=== PATIENT | female | born 1980 | race Caucasian/White ===

== ENCOUNTER 2025-05-21 09:26 | Outpatient (REF) | payer OTHER, SELFPAY ==
--- NOTE | 2025-05-21 09:36 | ECG_ITS ---
Test Reason : tachycardia Blood Pressure : */* mmHG Vent. Rate : 89 BPM Atrial Rate : 89 BPM P-R Int : 146 ms QRS Dur : 90 ms QT Int : 386 ms P-R-T Axes : 62 56 48 degrees QTcB Int : 469 ms Normal sinus rhythm Normal ECG No previous ECGs available Referred By: Milagro Briceno Electronically Signed By: TARIK JUAN MD
[2025-05-21 10:51] LABS: Alanine Aminotransferase 14 U/L (0-31); Albumin Level 4.1 g/dL (3.5-5.0); Alkaline Phosphatase 95 U/L (39-117); Anion Gap 11 (12-20); Aspartate Amino Transferase 23 U/L (5-31); Blood Urea Nitrogen 7 mg/dL (9-16); Calcium 8.6 mg/dL (8.4-10.2); Carbon Dioxide 26 mmol/L (22-29); Chloride 106 mmol/L (96-108); Cholesterol 159 mg/dL (<200); Estimated Glomerular Filt Rate > 60; HDL Cholesterol 44 mg/dL (>40); Potassium 3.8 mmol/L (3.3-5.1); Sodium 139 mmol/L (135-145); Total Protein 6.7 g/dL (6.5-8.0); Triglycerides 238 mg/dL (<150)
[2025-05-21 11:10] LABS: Free T4 (Free Thyroxine) 0.63 ng/dL (0.71-1.85); Thyroid Stimulating Hormone 1.53 uIU/mL (0.32-4.0)
== END 2025-05-21 09:27 | disposition home or self-care (01) ==
LOC: HO.LAB 09:26
PROVIDERS: PCP Internal Medicine; Visit Provider Registered Nurse Psychiatric/Mental Health
DX: F33.9 Major depressive disorder, recurrent, unspecified (principal); R00.0 Tachycardia, unspecified
CPT/HCPCS: 36415; 80053; 80061; 82248; 82306; 83036; 84439; 84443; 84481; 93005

== ENCOUNTER → 2025-05-21 09:36 | Outpatient (BNV) | payer OTHER, SELFPAY | PROVIDERS: PCP Internal Medicine; Visit Provider Internal Medicine Cardiovascular Disease | DX: R00.0 Tachycardia, unspecified (principal) | CPT/HCPCS: 93010 ==

== ENCOUNTER 2025-06-09 18:06 | Emergency (ER) | payer OTHER, SELFPAY ==
--- NOTE | ~2025-06-09 | XR_ITS ---
CLINICAL HISTORY: COughing. 1 view chest x-ray Comparison: None provided Findings: Lungs are clear without acute infiltrates. No pneumothorax. Heart size normal. No acute bony abnormalities. Impression: No acute processes This document has been electronically signed by: Raffi Wagner MD on 06/09/2025 19:20:58
[2025-06-09 18:28] VITALS: BP 128/63; PULSE 103; RESP 22; TEMP 36.8; O2SAT 94; BMI 50.7
--- NOTE | 2025-06-09 18:49 | ED.GENADULT ---
HPI - General Adult General Chief complaint: Upper Respiratory Symptoms Stated complaint: Cough/Wheezing Time Seen by Provider: 06/09/25 20:15 Source: patient Limitations: no limitations History of Present Illness ED Provider: Caridad Hatch PA-C HPI narrative: 45-year-old female presents with cough and cold symptoms x1 day. The cough is dry and repetitive, with the associated wheezing. Patient has multiple sick contacts; she is a new resident and a snf house. Denies known fever. Related Data Home Medications ?Medication ?Instructions ?Recorded ?Confirmed aripiprazole 2 mg tablet (Abilify) 2 mg PO BEDTIME depressive disorder 06/09/25 06/09/25 clonazepam 1 mg tablet 1 mg PO DAILY PRN Anxiety 06/09/25 06/09/25 clonidine HCl 0.1 mg tablet 0.1 mg PO BID 06/09/25 06/09/25 doxazosin 1 mg tablet 1 mg PO BEDTIME nightmares 06/09/25 06/09/25 gabapentin 600 mg tablet 600 mg PO Q8H 06/09/25 06/09/25 melatonin 3 mg tablet 3 mg PO BEDTIME insomnia 06/09/25 06/09/25 metformin 500 mg tablet,extended 500 mg PO DAILY diabetes mellitus 06/09/25 06/09/25 release 24 hr trazodone 100 mg tablet 100 mg PO BEDTIME insomnia 06/09/25 06/09/25 venlafaxine 150 mg 150 mg PO QAM 06/09/25 06/09/25 capsule,extended release 24 hr venlafaxine 75 mg capsule,extended 75 mg PO QAM 06/09/25 06/09/25 release 24 hr Previous Rx's ?Medication ?Instructions ?Recorded albuterol sulfate 90 mcg/actuation 2 puff inhalation Q4-6H PRN 06/09/25 aerosol inhaler (Ventolin HFA) shortness of breath or wheezing #6.7 grams codeine 10 mg-guaifenesin 100 mg/5 10 ml PO Q4-6H PRN cough #118 mL 06/09/25 mL oral liquid (Guaifenesin AC) prednisone 20 mg tablet 40 mg (2 x 20 mg) PO DAILY #8 tabs 06/09/25 Allergies Allergy/AdvReac Type Severity Reaction Status Date / Time No Known Allergies Allergy Verified 06/09/25 18:33 Review of Systems Review of Systems: Yes all other systems are reviewed and are negative Constitutional: Constitutional: Denies fatigue and Denies fever(s) Cardiovascular: Cardiovascular: Denies chest pain and Denies dyspnea Respiratory: Respiratory: Denies chest congestion, Reports cough, Denies dyspnea and Reports wheezing Endocrine: Endocrine: Denies fatigue Allergic/Immunologic: Allergic/Immunologic: Reports wheezing PMFSH Past Medical History Attestation statement: The following information was validated with the patient. Social History Social History Alcohol intake: former Smoked in Last 30 Days: No Use of substances other than those prescribed or required for medical reasons: No Advance Directives: No Advance Directives Information Provided: No Do you have a plan to hurt others: No Plan Patient : No Physical Exam ED Vital Signs: Vital Signs - 24 hr 06/09/25 18:28 06/09/25 20:02 06/09/25 21:22 Temperature 98.3 F 98.5 F Pulse Rate 103 H 94 Respiratory Rate 22 H 20 Blood Pressure 128/63 125/64 Pulse Oximetry 94 94 94 Oxygen Delivery Method Room Air Room Air Room Air 06/09/25 22:01 Temperature 98.5 F Pulse Rate 100 Respiratory Rate 20 Blood Pressure 126/82 Pulse Oximetry 95 Oxygen Delivery Method Room Air BMI result Body Mass Index 50.7 Const Other: Alert well-appearing Orientation/consciousness: patient oriented x3 Resp Other: Active bronchospasm type cough, occasional expiratory wheeze posterior sexton, no tachypnea Cardio Other: Normal peripheral perfusion Skin Other: Warm dry no rash Neuro General: patient oriented x3, gait normal, no focal motor deficits and CN's II-XI intact bilaterally Psych Other: Cooperative Course Course Course Narrative: RME: 45 yold female esmoker presents for coughing, wheezing, yellow phelghm, and headache. swabs and xray orderd Medications Administered Discontinued Medications Generic Name Dose Route Start Last Admin Trade Name Freq PRN Reason Stop Dose Admin Albuterol Sulfate 7.5 mg 06/09/25 21:00 06/09/25 21:07 Albuterol Sulfate (0.083%) 2.5 Mg/3 Ml Vial.Neb INHALE 06/09/25 21:01 7.5 mg ONCE ONE Administration Guaifenesin/Codeine Phosphate 10 ml 06/09/25 21:01 06/09/25 21:13 Guaifen/Codeine Sf 200/20/10ml 10 Ml Liquid PO 06/09/25 21:02 10 ml ONCE ONE Administration Prednisone 40 mg 06/09/25 21:00 06/09/25 21:07 Prednisone 20 Mg Tablet PO 06/09/25 21:01 40 mg ONCE ONE Administration Medical Decision Making Medical Decision Making [facility] Narrative: 45-year-old female presents with cough and cold symptoms x1 day. The cough is dry and repetitive, with the associated wheezing. Patient has multiple sick contacts; she is a new resident and a snf house. Denies known fever. No underlying chronic issues History: Per patient I have considered the following differential diagnoses: Asthma exacerbation, bronchospasm, bronchitis, pneumonia, viral syndrome Plan: Chest x-ray and viral panel ordered from triage everything is negative. The patient has reactive airway, she does not have a formal diagnosis of asthma, however she has been treated for bronchospasm in the past with other URI symptoms. Sending with the inhaler, prednisone and cough suppressant. I have independently reviewed the following tests: Labs: Viral panel negative Chest x-ray:1 view chest x-ray Comparison: None provided Findings: Lungs are clear without acute infiltrates. No pneumothorax. Heart size normal. No acute bony abnormalities. Impression: No acute processes This document has been electronically signed by: Raffi Wagner MD on 06/09/2025 19:20:58 Differential Diagnosis Differential Diagnoses: The differential diagnosis associated with the presentation includes See medical decision-making Admission/Observation Consideration of admission/observation: Escalation of care including admission/observation considered Not applicable Lab Data [facility] Lab Attestation statement: I reviewed the patient's lab results. Labs: Lab Results 06/09/25 Range/Units 19:19 COVID-19 (SOFY) Negative (Negative) COVID-19 Clin Com See Note Influenza Type A (PAOLA) Negative (Negative) Influenza Type B (PAOLA) Negative (Negative) Influenza A & B Note See Note S. pyogenes GrpA PAOLA Negative (Negative) Radiology Impression Discussion of test interpretation with radiology: I have reviewed the radiologist's reading. Discharge Plan Discharge Clinical Impression: Acute bronchospasm, Acute viral syndrome Patient Disposition: Home, Self-Care Instructions: Viral Syndrome (ED), Bronchospasm (ED) Additional Instructions: You are being treated for bronchospasm. See home care instructions. You likely have a virus causing your symptoms. You were screened for COVID, influenza and strep throat, everything was negative. The chest x-ray is clear you do not have pneumonia. There are numerous respiratory viruses circulating within the community. Use your albuterol as needed for wheezing and cough. Take the steroid as directed. Use the cough medicine as needed, to note it will cause drowsiness. Do not drive or operate machinery while taking the medication. Follow up with your primary care as needed. Prescriptions: New albuterol sulfate [Ventolin HFA] 90 mcg/actuation HFA aerosol inhaler 2 puff inhalation Q4-6H PRN (Reason: shortness of breath or wheezing) Qty: 6.7 0RF prednisone 20 mg tablet 40 mg PO DAILY Qty: 8 0RF codeine-guaifenesin [Guaifenesin AC] 10-100 mg/5 mL liquid 10 ml PO Q4-6H PRN (Reason: cough) Qty: 118 0RF No Action clonidine HCl 0.1 mg tablet 0.1 mg PO BID venlafaxine 75 mg capsule,extended release 24hr 75 mg PO QAM gabapentin 600 mg tablet 600 mg PO Q8H doxazosin 1 mg tablet 1 mg PO BEDTIME clonazepam 1 mg tablet 1 mg PO DAILY PRN (Reason: Anxiety) venlafaxine 150 mg capsule,extended release 24hr 150 mg PO QAM melatonin 3 mg tablet 3 mg PO BEDTIME trazodone 100 mg tablet 100 mg PO BEDTIME metformin 500 mg tablet extended release 24 hr 500 mg PO DAILY aripiprazole [Abilify] 2 mg tablet 2 mg PO BEDTIME Interventions: ED Discharge Assessment Last Done: 06/09/25 22:01 Discharge Date/Time: 06/09/25 22:01 Print Language: Hungarian
[2025-06-09 19:38] LABS: COVID-19 Test Negative (Negative); IDNOW Serial# 08D9AD1C; IDNOW Serial# 55D5AD1C; Strep A Nucleic Acid Negative (Negative)
[2025-06-09 19:41] LABS: IDNOW Serial# 58CA691E; Influenza B2 Negative (Negative)
[2025-06-09 20:02] VITALS: BP 125/64; PULSE 94; RESP 20; TEMP 36.9; O2SAT 94
--- OUTSIDE RECORDS SUMMARY | 2025-06-09 20:28 | XMS_ITS | Encounter Summary ---
Author Organization [employer] Address [address] [place] [address] Care Team Providers Care Human Relations Manager Name Role Phone Lea Rangel NP, Erica Primary Care Provider [phone] Encounter Details Date Type Department Care Team (Late st Contact Info) Description 04/02/2025 Lab Requisition [facility] - Main Lab [address] [facility] [address] [facility] [place] [address] Marta Marquez, [address] [address] Social History Tobacco Use Types Packs/Day Years Used Date Smoking Tobacco: Never Assessed Comments Unknown Sex and Gender Information Value Date Recorded Sex Assigned at Not on file Legal Sex Female 9:52 AM EDT Gender Identity Not on file Sexual Orientation Not on file documented as of this encounter Plan of Treatment Not on file documented as of this encounter Visit Diagnoses Not on filedocumented in this encounter Care Teams Human Relations Manager Relationship Specialty Start Date End Date Shannon Tate NP [address] [place] [phone] PCP - General Psychiatry 04/01/25 documented as of this encounter
--- OUTSIDE RECORDS SUMMARY | 2025-06-09 20:28 | XMS_ITS | Encounter Summary ---
Author Organization [employer] Address [address] [place] [address] Care Team Providers Care Drum Stenciler Name Role Phone Lea Rangel NP, Erica Primary Care Provider Encounter Details Date Type Department Care Team (Late st Contact Info) Description 04/01/2025 Lab Requisition [facility] - Main Lab [address] [facility] [place] [address] Shannon Tate NP [address] [place] [address] Other software systems architect (current) drug therapy Social History Tobacco Use Types Packs/Day Years Used Date Smoking Tobacco: Never Assessed Comments Unknown Sex and Gender Information Value Date Recorded Sex Assigned at Not on file Legal Sex Female 9:52 AM EDT Gender Identity Not on file Sexual Orientation Not on file documented as of this encounter Plan of Treatment Not on file documented as of this encounter Procedures Procedure Name Priority Date/Time Associated Diagnosis Comments LIPID PANEL WITH REFLEX TO DIRECT LDL Routine 04/01/2025 7:00 AM EDT Other software systems architect (current) drug therapy HEMOGLOBIN A1C Routine 04/01/2025 7:00 AM EDT Other software systems architect (current) drug therapy GLUCOSE, RANDOM Routine 04/01/2025 7:00 AM EDT Other software systems architect (current) drug therapy documented in this encounter Results * Hemoglobin A1c (04/01/2025 7:00 AM EDT) Hemoglobin A1C 6.4 <6.5 % LAB CHEMISTRY METHOD 04/01/2025 11:17 AM EDT [facility] Mean Bld Glu Estim. 137 mg/dL LAB CHEMISTRY METHOD 04/01/2025 11:17 AM EDT [facility] Blood Venous blood specimen / Unknown Venipuncture / Unknown 04/01/2025 7:00 AM EDT 04/01/2025 10:03 AM EDT us Shannon Rangel NP LAB BLOOD ORDERABLES Final Re sult [facility] LAB [address] [place] [address], [place] [phone] * Lipid panel with reflex to direct LDL (04/01/2025 7:00 AM EDT) Cholesterol 181 0 - 200 mg/dL LAB CHEMISTRY METHOD 04/01/2025 10:56 AM [facility] Triglycerides 141 0 - 150 mg/dL LAB CHEMISTRY METHOD 04/01/2025 10:56 AM [facility] HDL 53 >=40 mg/dL LAB CHEMISTRY METHOD 04/01/2025 10:56 AM [facility] LDL Calculated 100 0 - 100 mg/dL LAB CHEMISTRY METHOD 04/01/2025 10:56 AM [facility] LAB Comment:Estimated LDL Calcul ated using equation: Total cholesterol - HDL cholesterol - (Triglycerides/5) VLDL Cholesterol Aftab 28.2 mg/dL LAB CHEMISTRY METHOD 04/01/2025 10:56 AM [facility] LAB Non HDL Chol. (LDL+VLDL) 128 <145 mg/dL LAB CHEMISTRY METHOD 04/01/2025 10:56 AM [facility] LAB Chol/HDL Ratio 3.4 0.0 - 4.4 LAB CHEMISTRY METHOD 04/01/2025 10:56 AM [facility] Blood Venous blood specimen / Unknown Venipuncture / Unknown 04/01/2025 7:00 AM EDT 04/01/2025 10:03 AM EDT Shannon Rangel NP LAB BLOOD ORDERABLES Final Re sult Performing Organization Address [facility] Co de Phone Number [facility] [address] [place] [address], [place] [phone] * (ABNORMAL) Glucose, random (04/01/2025 7:00 AM EDT) Glucose 106(H) 70 - 100 mg/dL LAB CHEMISTRY METHOD 04/01/2025 10:56 AM EDT [facility] LAB Blood Venous blood specimen / Unknown Venipuncture / Unknown 04/01/2025 7:00 AM EDT 04/01/2025 10:03 AM EDT Shannon Rangel NP LAB BLOOD ORDERABLES Final Re sult Performing Organization Address [facility] Co de Phone Number [facility] [address] [place] [address], [place] [phone] documented in this encounter Visit Diagnoses Diagnosis Other software systems architect (current) drug therapy documented in this encounter Care Teams Drum Stenciler Relationship Specialty Start Date End Date Shannon Tate NP [address] [place] [phone] PCP - General Psychiatry 04/01/25 documented as of this encounter
--- OUTSIDE RECORDS SUMMARY | 2025-06-09 20:28 | XMS_ITS | Encounter Summary ---
Author Organization [employer] Address [address] [place] [address] Care Team Providers Care Tombstone Setter Name Role Phone Lea Rangel NP, Erica Primary Care Provider [phone] Encounter Details Date Type Department Care Team (Late st Contact Info) Description 04/02/2025 Lab Requisition [facility] - Main Lab [address] [facility] [place] [address] Marta Marquez, [address] [phone] Other fdc (current) drug therapy Social History Tobacco Use [...] Procedure Name Priority Date/Time Associated Diagnosis Comments HIV 1, 2 ANTIBODY, P24 ANTIGEN WITH REFLEX TO DIFFERENTIATION Routine 04/02/2025 7:00 AM EDT Other fdc (current) drug therapy TREPONEMA PALLIDUM ANTIBODY WITH REFLEX TO RPR AND PARTICLE AGGLUTINATION Routine 04/02/2025 7:00 AM EDT Other laborer marine terminal (current) drug therapy CHLAMYDIA TRACHOMATIS AND NEISSERIA GONORRHOEAE PCR Routine 04/02/2025 7:00 AM EDT Other fdc (current) drug therapy documented in this encounter Results * Chlamydia trachomatis and Neisseria gonorrhoeae molecular study (04/02/2025 7:00 AM EDT) Neisseria gonorrhoeae PCR Negative Negative LAB MOLECULAR DIAGNOSTICS METHOD 04/02/2025 1:04 PM EDT [facility] Chlamydia trachomatis PCR Negative Negative LAB MOLECULAR DIAGNOSTICS METHOD 04/02/2025 1:04 PM EDT [facility] Swab Cervix uteri structure / Unknown Non-blood Collection / Unknown 04/02/2025 7:00 AM EDT 04/02/2025 9:45 AM EDT us Marta Marquez [facility] LAB MICROBIOLOGY - GENERAL ORDERABLES Final Result Performing Organization Address [facility]/ZIP Co de Phone Number [facility] [address] [place] [address], [place] [phone] * Treponema pallidum antibody with reflex to RPR and particle agglutination (04/02/2025 7:00 AM EDT) T. Pallidum Antibodies Negative Negative LAB CHEMISTRY METHOD 04/02/2025 11:00 AM EDT [facility] Blood Venous blood specimen / Unknown Venipuncture / Unknown 04/02/2025 7:00 AM EDT 04/02/2025 9:45 AM EDT us Marta Marquez [facility] LAB BLOOD ORDERABLES Final Result Performing Organization Address [facility]/ZIP Co de Phone Number [facility] [address] [place] [address], [place] [phone] * HIV 1,2 antibody, p24 antigen with reflex to differentiation (04/02/2025 7:00 AM EDT) HIV Combo AB/AG Negative Negative LAB CHEMISTRY METHOD 04/02/2025 11:29 AM EDT [facility] Blood Venous blood specimen / Unknown Venipuncture / Unknown 04/02/2025 7:00 AM EDT 04/02/2025 9:45 AM EDT Narrative [facility] - 04/02/2025 11:29 AM EDT This assay is a 4th generation assay allowing for earlier detection of HIV infection by detecting the presence of the HIV-1 p24 antigen as well as the traditional antibodies to HIV type 1 (including group O) and type 2. Use of a 4th generation assay is the current CDC recommendation for HIV screening. us Marta Marquez PROTECTION MANAGER LAB BLOOD ORDERABLES Final Result [facility] [address] [place] [address], documented in this encounter Visit Diagnoses Diagnosis Other fdc (current) drug therapy documented in this encounter Care Teams Tombstone Setter Relationship Specialty Start Date End Date Shannon Tate NP [address] [place] [phone] PCP - General Psychiatry 04/01/25 documented as of this encounter
--- OUTSIDE RECORDS SUMMARY | 2025-06-09 20:28 | XMS_ITS | Clinical Summary ---
Author Organization 299 [facility] Address [address] [place] [address] Phone Care Team Providers Care Graduation Coach Name Role Phone Lea Rangel NP, Shannon Primary Care Provider Encounters Date Type Department Care Team Description 04/02/2025 Lab Requisition [facility] Lab [address] [place] [phone] Marta Marquez FNP 04/02/2025 Lab Requisition [facility] Lab [address] [place] [phone] Marta Marquez FNP Other intermodal truck driver (current) drug therapy 04/01/2025 Lab Requisition [facility] Lab [address] [place] [phone] Shannon Tate NP Other intermodal truck driver (current) drug therapy 04/01/2025 Lab Requisition [facility] Lab [address] [place] [phone] Shannon Tate NP from Last 3 Months Social History Tobacco Use Types Packs/Day Years Used Date Smoking Tobacco: Never Assessed Comments Unknown Sex and Gender Information Value Date Recorded Sex Assigned at Not on file Legal Sex Female 9:52 AM EDT Gender Identity Not on file Sexual Orientation Not on file Plan of Treatment Health Maintenance Due Date Last Done Comments Breast Cancer Screening 1981 DTaP,Tdap,and Td Vaccines (1 - Tdap) 02/12/2000 Hepatitis B Vaccines (1 of 3 - 19+ 3-dose series) 02/12/2000 Cervical Cancer Screening: P ap Smear 2002 HPV Vaccines (1 - 3-dose SCD M series) 02/12/2008 Depression Screening 08/13/2024 Hepatitis C Screening 04/01/2025 Social Influencers of Health Screening 04/01/2025 COVID-19 Vaccine ( - 2023-2 5 season) 2025 Influenza Vaccine (#1) 2025 Cholesterol Screening (Lipid Panel) 04/01/2030 04/01/2025 RSV Immunization Adult Patie nts (1 - 1-dose 75+ series) 02/12/2056 HIV Screening Completed 04/02/2025 HIB Vaccines Aged Out No longer eligi ble based on patient's age to complete this topic Hepatitis A Vaccines Aged Out No long er eligible based on patient's age to complete this topic IPV Vaccines Aged Out No longer eligi ble based on patient's age to complete this topic MMR Vaccines Aged Out No longer eligi ble based on patient's age to complete this topic Meningococcal ACWY Vaccine Aged Out N o longer eligible based on patient's age to complete this topic Meningococcal B Vaccine Aged Out No l onger eligible based on patient's age to complete this topic Pneumococcal Vaccine: Pediat rics (0 to 5 Years) and At-Risk Patients (6 to 49 Years) Aged Out No longer eligi ble based on patient's age to complete this topic RSV Immunization Patients Un guerda 20 months Aged Out No longer eligible b ased on patient's age to complete this topic Varicella Vaccines Aged Out No longer eligible based on patient's age to complete this topic Procedures Procedure Name Priority Date/Time Associated Diagnosis Comments TREPONEMA PALLIDUM ANTIBODY WITH REFLEX TO RPR AND PARTICLE AGGLUTINATION Routine 04/02/2025 7:00 AM EDT Other intermodal truck driver (current) drug therapy HIV 1, 2 ANTIBODY, P24 ANTIGEN WITH REFLEX TO DIFFERENTIATION Routine 04/02/2025 7:00 AM EDT Other intermodal truck driver (current) drug therapy CHLAMYDIA TRACHOMATIS AND NEISSERIA GONORRHOEAE PCR Routine 04/02/2025 7:00 AM EDT Other intermodal truck driver (current) drug therapy HEMOGLOBIN A1C Routine 04/01/2025 7:00 AM EDT Other intermodal truck driver (current) drug therapy LIPID PANEL WITH REFLEX TO DIRECT LDL Routine 04/01/2025 7:00 AM EDT Other fpc (current) drug therapy GLUCOSE, RANDOM Routine 04/01/2025 7:00 AM EDT Other fpc (current) drug therapy from Last 3 Months Results * HIV 1,2 antibody, p24 antigen with reflex to differentiation (04/02/2025 7:00 AM EDT) HIV Combo AB/AG Negative Negative LAB CHEMISTRY METHOD 04/02/2025 11:29 AM EDT [facility] Blood Venous blood specimen / Unknown Venipuncture / Unknown 04/02/2025 7:00 AM EDT 04/02/2025 9:45 AM EDT Narrative [facility] - 04/02/2025 11:29 AM EDT This assay is a 4th generation assay allowing for earlier detection of HIV infection by detecting the presence of the HIV-1 p24 antigen as well as the traditional antibodies to HIV type 1 (including group O) and type 2. Use of a 4th generation assay is the current CDC recommendation for HIV screening. us Marta Marquez [facility] LAB BLOOD ORDERABLES Final Result Performing Organization Address [facility] Co de Phone Number [facility] [address] [place] [address], [place] [phone] * Treponema pallidum antibody with reflex to RPR and particle agglutination (04/02/2025 7:00 AM EDT) T. Pallidum Antibodies Negative Negative LAB CHEMISTRY METHOD 04/02/2025 11:00 AM EDT [facility] Blood Venous blood specimen / Unknown Venipuncture / Unknown 04/02/2025 7:00 AM EDT 04/02/2025 9:45 AM EDT us Marta Marquez [facility] LAB BLOOD ORDERABLES Final Result Performing Organization Address City/[facility]/ZIP Co de Phone Number [facility] [address] [place] [address], [place] [phone] * Chlamydia trachomatis and Neisseria gonorrhoeae molecular study (04/02/2025 7:00 AM EDT) Pathologist [facility] Neisseria gonorrhoeae PCR Negative Negative LAB MOLECULAR DIAGNOSTICS METHOD 04/02/2025 1:04 PM EDT [facility] Chlamydia trachomatis PCR Negative Negative LAB MOLECULAR DIAGNOSTICS METHOD 04/02/2025 1:04 PM EDT [facility] Swab Cervix uteri structure / Unknown Non-blood Collection / Unknown 04/02/2025 7:00 AM EDT 04/02/2025 9:45 AM EDT Marta Marquez [employer] LAB MICROBIOLOGY - GENERAL ORDERABLES Final Result Performing Organization Address [facility]/ZIP Co de Phone Number [facility] [address] [place] [address], [place] [phone] * Lipid panel with reflex to direct LDL (04/01/2025 7:00 AM EDT) [facility] Cholesterol 181 0 - 200 mg/dL LAB CHEMISTRY METHOD 04/01/2025 10:56 AM EDT [facility] Triglycerides 141 0 - 150 mg/dL LAB CHEMISTRY METHOD 04/01/2025 10:56 AM EDT [facility] HDL 53 >=40 mg/dL LAB CHEMISTRY METHOD 04/01/2025 10:56 AM EDT [facility] LDL Calculated 100 0 - 100 mg/dL LAB CHEMISTRY METHOD 04/01/2025 10:56 AM EDT [facility] Comment:Estimated LDL Calcul ated using equation: Total cholesterol - HDL cholesterol - (Triglycerides/5) VLDL Cholesterol Aftab 28.2 mg/dL LAB CHEMISTRY METHOD 04/01/2025 10:56 AM EDT [facility] Non HDL Chol. (LDL+VLDL) 128 <145 mg/dL LAB CHEMISTRY METHOD 04/01/2025 10:56 AM EDT [facility] Chol/HDL Ratio 3.4 0.0 - 4.4 LAB CHEMISTRY METHOD 04/01/2025 10:56 AM EDT [facility] Blood Venous blood specimen / Unknown Venipuncture / Unknown 04/01/2025 7:00 AM EDT 04/01/2025 10:03 AM EDT Shannon Rangel NP LAB BLOOD ORDERABLES Final Re sult [facility] [address] [place] [address], [place] [phone] * Hemoglobin A1c (04/01/2025 7:00 AM EDT) Hemoglobin A1C 6.4 <6.5 % LAB CHEMISTRY METHOD 04/01/2025 11:17 AM EDT [facility] Mean Bld Glu Estim. 137 mg/dL LAB CHEMISTRY METHOD 04/01/2025 11:17 AM EDT [facility] Blood Venous blood specimen / Unknown Venipuncture / Unknown 04/01/2025 7:00 AM EDT 04/01/2025 10:03 AM EDT Shannon Tate V SWABBER LAB BLOOD ORDERABLES Final Re sult [facility] [address] [place] [address], [place] [phone] * (ABNORMAL) Glucose, random (04/01/2025 7:00 AM EDT) Glucose 106(H) 70 - 100 mg/dL LAB CHEMISTRY METHOD 04/01/2025 10:56 AM EDT [facility] Blood Venous blood specimen / Unknown Venipuncture / Unknown 04/01/2025 7:00 AM EDT 04/01/2025 10:03 AM EDT Shannon Rangel NP LAB BLOOD ORDERABLES Final Re sult [facility] ([facility] [address] [place] [address], from Last 3 Months Care Teams Graduation Coach Relationship Specialty Start Date End Date Shannon Tate NP [address] [place] [phone] PCP - General Psychiatry 04/01/25
--- OUTSIDE RECORDS SUMMARY | 2025-06-09 20:28 | XMS_ITS | Encounter Summary ---
Author Organization [employer] Address [address] [place] [address] Care Team Providers Care Accounting Lecturer Name Role Phone Lea Rangel NP, Erica Primary Care Provider Encounter Details Date Type Department Care Team (Late st Contact Info) Description 04/01/2025 Lab Requisition [facility] - Main Lab [address] [place] [address] Shannon Tate NP [address] [place] [address] Social History Tobacco Use Types Packs/Day Years [...] on filedocumented in this encounter Care Teams Accounting Lecturer Relationship Specialty Start Date End Date Shannon Tate NP [address] [place] [address] PCP - General Psychiatry 04/01/25 documented as of this encounter
[2025-06-09] MEDS: Albuterol Sulfate (0.083%) 2.5 MG/3 ML VIAL.NEB 7.5 MG INHALE (21:07)
[2025-06-09] MEDS: guaiFEN/Codeine SF 200/20/10ML 10 ML LIQUID PO (21:13)
[2025-06-09 21:22] VITALS: O2SAT 94
[2025-06-09 22:01] VITALS: BP 126/82; PULSE 100; RESP 20; TEMP 36.9; O2SAT 95
== END 2025-06-09 22:01 | disposition home or self-care (01) ==
PROVIDERS: Physician Assistant; Emergency Provider Emergency Medicine; PCP Internal Medicine
DX: J98.01 Acute bronchospasm (principal); B34.9 Viral infection, unspecified; R05.9 Cough, unspecified; R06.2 Wheezing; Z03.818 Encounter for observation for suspected exposure to other biological agents ruled out
CPT/HCPCS: 71045; 87502; 87635; 87651; 99284; 99285

== ENCOUNTER → 2025-06-09 18:48 | Outpatient (BNV) | payer OTHER, SELFPAY | PROVIDERS: PCP Internal Medicine; Visit Provider Radiology Diagnostic Radiology | DX: R05.9 Cough, unspecified (principal) | CPT/HCPCS: 71045 ==

== ENCOUNTER 2025-06-18 22:48 | Emergency (ER) | payer OTHER, SELFPAY ==
[2025-06-18 22:54] VITALS: BP 100/67; PULSE 70; O2SAT 97
[2025-06-18 22:56] VITALS: BMI 49.1
[2025-06-18 22:58] VITALS: BP 102/57; PULSE 88; RESP 16; TEMP 36.8; O2SAT 98
[2025-06-19 00:53] LABS: Cannabinoid Screen Urine POSITIVE (Not Detect)
--- OUTSIDE RECORDS SUMMARY | 2025-06-19 01:12 | XMS_ITS | Encounter Summary ---
Author Organization [employer] Address [address] [place] [address] Care Team Providers Care Snowmaker Name Role Phone Lea Rangel NP, Erica Primary Care Provider [phone] Encounter Details Date Type Department Care Team (Late st Contact Info) Description 04/02/[address] [facility] - Main Lab [address] [facility] [place] [address] Marta Marquez, [address] [address] Social History Tobacco Use Types [...] on filedocumented in this encounter Care Teams Snowmaker Relationship Specialty Start Date End Date Shannon Tate NP [address] [place] [phone] PCP - General Psychiatry 04/01/25 documented as of this encounter
--- OUTSIDE RECORDS SUMMARY | 2025-06-19 01:13 | XMS_ITS | Encounter Summary ---
Author Organization [employer] Address [address] [place] [address] Care Team Providers Care Diesel Technician Mechanic Name Role Phone Lea Rangel NP, Erica Primary Care Provider [phone] Encounter Details Date Type Department Care Team (Late st Contact Info) Description 04/01/2025 Lab Requisition [facility] - Main Lab [address] [facility] [place] [address] Shannon Tate NP [address] [place] [address] Other watermelon harvesting supervisor (current) drug therapy Social History Tobacco Use [...] LDL Routine 04/01/2025 7:00 AM EDT Other watermelon harvesting supervisor (current) drug therapy HEMOGLOBIN A1C Routine 04/01/2025 7:00 AM EDT Other watermelon harvesting supervisor (current) drug therapy GLUCOSE, RANDOM Routine 04/01/2025 7:00 AM EDT Other watermelon harvesting supervisor (current) drug therapy documented in this encounter Results * Hemoglobin A1c (04/01/2025 7:00 AM EDT) Hemoglobin A1C 6.4 <6.5 % LAB CHEMISTRY METHOD 04/01/2025 11:17 AM EDT [facility] Mean Bld Glu Estim. 137 mg/dL LAB CHEMISTRY METHOD 04/01/2025 11:17 AM EDT [facility] Blood Venous blood specimen / Unknown Venipuncture / Unknown 04/01/2025 7:00 AM EDT 04/01/2025 10:03 AM EDT us Shannon Rangel NP LAB BLOOD ORDERABLES Final Re sult [facility] [address] [place] [address], [place] [phone] * Lipid panel with reflex to direct LDL (04/01/2025 7:00 AM EDT) Cholesterol 181 0 - 200 mg/dL LAB CHEMISTRY METHOD 04/01/2025 10:56 AM [facility] Triglycerides 141 0 - 150 mg/dL LAB CHEMISTRY METHOD 04/01/2025 10:56 AM [facility] HDL 53 >=40 mg/dL LAB CHEMISTRY METHOD 04/01/2025 10:56 AM [facility] LDL Calculated 100 0 - 100 mg/dL LAB CHEMISTRY METHOD 04/01/2025 10:56 AM [facility] Comment:Estimated LDL Calcul ated using equation: Total cholesterol - HDL cholesterol - (Triglycerides/5) VLDL Cholesterol Aftab 28.2 mg/dL LAB CHEMISTRY METHOD 04/01/2025 10:56 AM [facility] Non HDL Chol. (LDL+VLDL) 128 <145 mg/dL LAB CHEMISTRY METHOD 04/01/2025 10:56 AM [facility] Chol/HDL Ratio 3.4 0.0 - 4.4 LAB CHEMISTRY METHOD 04/01/2025 10:56 AM [facility] Blood Venous blood specimen / Unknown Venipuncture / Unknown 04/01/2025 7:00 AM EDT 04/01/2025 10:03 AM EDT Shannon Rangel NP LAB BLOOD ORDERABLES Final Re sult Performing Organization Address [facility] Co de Phone Number [facility] [address] [place] [address], [place] [phone] * (ABNORMAL) Glucose, random (04/01/2025 7:00 AM EDT) Glucose 106(H) 70 - 100 mg/dL LAB CHEMISTRY METHOD 04/01/2025 10:56 AM EDT [facility] Blood Venous blood specimen / Unknown Venipuncture / Unknown 04/01/2025 7:00 AM EDT 04/01/2025 10:03 AM EDT Shannon Rangel NP LAB BLOOD ORDERABLES Final Re sult Performing Organization Address [facility] Co de Phone Number [facility] [address] [place] [address], [place] [phone] documented in this encounter Visit Diagnoses Diagnosis Other watermelon harvesting supervisor (current) drug therapy documented in this encounter Care Teams Diesel Technician Mechanic Relationship Specialty Start Date End Date Shannon Tate NP [address] [place] [phone] PCP - General Psychiatry 04/01/25 documented as of this encounter
--- OUTSIDE RECORDS SUMMARY | 2025-06-19 01:13 | XMS_ITS | Clinical Summary ---
Author Organization 299 [facility] Address [address] [place] [address] Phone Care Team Providers Care Eligibility Technician Name Role Phone Lea Rangel NP, Shannon Primary Care Provider [phone] Encounters Date Type Department Care Team Description 04/02/[address] [facility] Lab [address] [place] [phone] Marta Marquez FNP 04/02/[address] [facility] Lab [address] [place] [phone] Marta Marquez FNP Other watermaster (current) drug therapy 04/01/[address] [facility] [address] [place] [phone] Shannon Tate NP Other watermaster (current) drug therapy 04/01/[address] [facility] [address] [place] [phone] Shannon Tate NP from Last 3 Months [...] AGGLUTINATION Routine 04/02/2025 7:00 AM EDT Other watermaster (current) drug therapy HIV 1, 2 ANTIBODY, P24 ANTIGEN WITH REFLEX TO DIFFERENTIATION Routine 04/02/2025 7:00 AM EDT Other watermaster (current) drug therapy CHLAMYDIA TRACHOMATIS AND NEISSERIA GONORRHOEAE PCR Routine 04/02/2025 7:00 AM EDT Other watermaster (current) drug therapy HEMOGLOBIN A1C Routine 04/01/2025 7:00 AM EDT Other watermaster (current) drug therapy LIPID PANEL WITH REFLEX TO DIRECT LDL Routine 04/01/2025 7:00 AM EDT Other penitentiary (current) drug therapy GLUCOSE, RANDOM Routine 04/01/2025 7:00 AM EDT Other penitentiary (current) drug therapy from Last 3 Months Results * HIV 1,2 antibody, p24 antigen with reflex to differentiation (04/02/2025 7:00 AM EDT) HIV Combo AB/AG Negative Negative LAB CHEMISTRY METHOD 04/02/2025 11:[address] [facility] Blood Venous blood specimen / Unknown Venipuncture / Unknown 04/02/2025 7:00 AM EDT 04/02/2025 9:[address] [facility] - 04/02/2025 11:29 AM EDT This assay is a 4th generation assay allowing for earlier detection of HIV infection by detecting the presence of the HIV-1 p24 antigen as well as the traditional antibodies to HIV type 1 (including group O) and type 2. Use of a 4th generation assay is the current CDC recommendation for HIV screening. us Marta Marquez [facility] BLOOD ORDERABLES Final Result Performing Organization Address [facility] Co de Phone Number [facility] [address] [place] [address], [place] [phone] * Treponema pallidum antibody with reflex to RPR and particle agglutination (04/02/2025 7:00 AM EDT) T. Pallidum Antibodies Negative Negative LAB CHEMISTRY METHOD 04/02/2025 11:[address] [facility] Blood Venous blood specimen / Unknown Venipuncture / Unknown 04/02/2025 7:00 AM EDT 04/02/2025 9:45 AM EDT us Marta Marquez [facility] BLOOD ORDERABLES Final Result Performing Organization Address City/[facility]/ZIP Co de Phone Number [facility] [address] [place] [address], [place] [phone] * Chlamydia trachomatis and Neisseria gonorrhoeae molecular study (04/02/2025 7:00 AM EDT) Pathologist [facility] Neisseria gonorrhoeae PCR Negative Negative LAB MOLECULAR DIAGNOSTICS METHOD 04/02/2025 1:[address] [facility] Chlamydia trachomatis PCR Negative Negative LAB MOLECULAR DIAGNOSTICS METHOD 04/02/2025 1:[address] [facility] Swab Cervix uteri structure / Unknown Non-blood Collection / Unknown 04/02/2025 7:00 AM EDT 04/02/2025 9:45 AM EDT Marta Marquez SCALING MACHINE OPERATOR LAB MICROBIOLOGY - GENERAL ORDERABLES Final Result Performing Organization Address [facility]/ZIP Co de Phone Number [facility] [address] [place] [address], [place] [phone] * Lipid panel with reflex to direct LDL (04/01/2025 7:00 AM EDT) [facility] Cholesterol 181 0 - 200 mg/dL LAB CHEMISTRY METHOD 04/01/2025 10:[address] [facility] Triglycerides 141 0 - 150 mg/dL LAB CHEMISTRY METHOD 04/01/2025 10:[address] [facility] HDL 53 >=40 mg/dL LAB CHEMISTRY METHOD 04/01/2025 10:[address] [facility] LDL Calculated 100 0 - 100 mg/dL LAB CHEMISTRY METHOD 04/01/2025 10:[address] [facility] Comment:Estimated LDL Calcul ated using equation: Total cholesterol - HDL cholesterol - (Triglycerides/5) VLDL Cholesterol Aftab 28.2 mg/dL LAB CHEMISTRY METHOD 04/01/2025 10:[address] [facility] Non HDL Chol. (LDL+VLDL) 128 <145 mg/dL LAB CHEMISTRY METHOD 04/01/2025 10:[address] [facility] Chol/HDL Ratio 3.4 0.0 - 4.4 LAB CHEMISTRY METHOD 04/01/2025 10:[address] [facility] Blood Venous blood specimen / Unknown Venipuncture / Unknown 04/01/2025 7:00 AM EDT 04/01/2025 10:03 AM EDT Shannon Rangel NP LAB BLOOD ORDERABLES Final Re sult [facility] [address] [place] [address], [place] [phone] * Hemoglobin A1c (04/01/2025 7:00 AM EDT) Hemoglobin A1C 6.4 <6.5 % LAB CHEMISTRY METHOD 04/01/2025 11:[address] [facility] Mean Bld Glu Estim. 137 mg/dL LAB CHEMISTRY METHOD 04/01/2025 11:[address] [facility] Blood Venous blood specimen / Unknown Venipuncture / Unknown 04/01/2025 7:00 AM EDT 04/01/2025 10:03 AM EDT Shannon Tate V APPEALS REFEREE LAB BLOOD ORDERABLES Final Re sult [facility] [address] [place] [address], [place] [phone] * (ABNORMAL) Glucose, random (04/01/2025 7:00 AM EDT) Glucose 106(H) 70 - 100 mg/dL LAB CHEMISTRY METHOD 04/01/2025 10:[address] [facility] Blood Venous blood specimen / Unknown Venipuncture / Unknown 04/01/2025 7:00 AM EDT 04/01/2025 10:03 AM EDT Shannon Rangel NP LAB BLOOD ORDERABLES Final Re sult [facility] [address] [place] [address], from Last 3 Months Care Teams Eligibility Technician Relationship Specialty Start Date End Date Shannon Tate NP [address] [place] [phone] PCP - General Psychiatry 04/01/25
--- OUTSIDE RECORDS SUMMARY | 2025-06-19 01:13 | XMS_ITS | Encounter Summary ---
Author Organization [employer] Address [address] [place] [address] Care Team Providers Care Passenger Interline Clerk Name Role Phone Lea Rangel NP, Erica Primary Care Provider [phone] Encounter Details Date Type Department Care Team (Late st Contact Info) Description 04/01/2025 Lab Requisition [facility] - Main Lab [address] [place] [address] Shannon Tate NP [address] [place] [address] Social History Tobacco Use Types [...] on filedocumented in this encounter Care Teams Passenger Interline Clerk Relationship Specialty Start Date End Date Shannon Tate NP [address] [place] [address] PCP - General Psychiatry 04/01/25 documented as of this encounter
--- OUTSIDE RECORDS SUMMARY | 2025-06-19 01:13 | XMS_ITS | Encounter Summary ---
Author Organization [employer] Address [address] [place] [address] Care Team Providers Care Loading Manager Name Role Phone Lea Rangel NP, Erica Primary Care Provider [phone] Encounter Details Date Type Department Care Team (Late st Contact Info) Description 04/02/2025 Lab Requisition [facility] - Main Lab [address] [facility] [place] [address] Marta Marquez, [address] [address] Other chcf (current) drug therapy Social History Tobacco Use [...] DIFFERENTIATION Routine 04/02/2025 7:00 AM EDT Other chcf (current) drug therapy TREPONEMA PALLIDUM ANTIBODY WITH REFLEX TO RPR AND PARTICLE AGGLUTINATION Routine 04/02/2025 7:00 AM EDT Other cook vegetable (current) drug therapy CHLAMYDIA TRACHOMATIS AND NEISSERIA GONORRHOEAE PCR Routine 04/02/2025 7:00 AM EDT Other chcf (current) drug therapy documented in this encounter Results * Chlamydia trachomatis and Neisseria gonorrhoeae molecular study (04/02/2025 7:00 AM EDT) Neisseria gonorrhoeae PCR Negative Negative LAB MOLECULAR DIAGNOSTICS METHOD 04/02/2025 1:04 PM EDT [facility] Chlamydia trachomatis PCR Negative Negative LAB MOLECULAR DIAGNOSTICS METHOD 04/02/2025 1:04 PM EDT [facility] Swab Cervix uteri structure / Unknown Non-blood Collection / Unknown 04/02/2025 7:00 AM EDT 04/02/2025 9:45 AM EDT us Marta Marquez [facility] MICROBIOLOGY - GENERAL ORDERABLES Final Result Performing Organization Address [facility]/ZIP Co de Phone Number [facility] [address] [place] [address], [place] [phone] * Treponema pallidum antibody with reflex to RPR and particle agglutination (04/02/2025 7:00 AM EDT) T. Pallidum Antibodies Negative Negative LAB CHEMISTRY METHOD 04/02/2025 11:00 AM EDT [facility] Blood Venous blood specimen / Unknown Venipuncture / Unknown 04/02/2025 7:00 AM EDT 04/02/2025 9:45 AM EDT us Marta Marquez [facility] BLOOD ORDERABLES Final Result Performing Organization Address [facility]/ZIP Co de Phone Number [facility] [address] [place] [address], [place] [phone] * HIV 1,2 antibody, p24 antigen with reflex to differentiation (04/02/2025 7:00 AM EDT) HIV Combo AB/AG Negative Negative LAB CHEMISTRY METHOD 04/02/2025 11:29 AM EDT [facility] Blood Venous blood specimen / Unknown Venipuncture / Unknown 04/02/2025 7:00 AM EDT 04/02/2025 9:45 AM EDT Narrative [facility] - 04/02/2025 11:29 AM [...] recommendation for HIV screening. us Marta Marquez CUSTOMER SUPPORT ASSOCIATE LAB BLOOD ORDERABLES Final Result [facility] [address] [place] [address], documented in this encounter Visit Diagnoses Diagnosis Other chcf (current) drug therapy documented in this encounter Care Teams Loading Manager Relationship Specialty Start Date End Date Shannon Tate NP [address] [place] [phone] PCP - General Psychiatry 04/01/25 documented as of this encounter
--- NOTE | 2025-06-19 01:23 | ED.MEDCLEAR ---
HPI - Medical Clearance General Chief complaint: Medical Clearance Stated complaint: drug free facility needs drug eval b4 readmitted Time Seen by Provider: 06/19/25 01:07 Source: patient, RN notes reviewed and old records reviewed Mode of arrival: EMS Limitations: no limitations History of Present Illness ED Provider: Kings HPI Narrative: 45-year-old female presents for evaluation of ?my correction wants me tested for drugs. ? The patient is at a drug free prison house Staff apparently felt that the patient was ?stoned what surgery and she was sent here for evaluation and medical clearance. The patient admits to smoking marijuana yesterday, she is currently prescribed codeine for a bronchitis and she takes clonazepam that is prescribed to her. She reports that she took no other additional medications or illicit substances She offers no complaints and would like to be discharged home Related Information Home Medications ?Medication ?Instructions ?Recorded ?Confirmed aripiprazole 2 mg tablet (Abilify) 2 mg PO BEDTIME depressive disorder 06/09/25 06/09/25 clonazepam 1 mg tablet 1 mg PO DAILY PRN Anxiety 06/09/25 06/09/25 clonidine HCl 0.1 mg tablet 0.1 mg PO BID 06/09/25 06/09/25 doxazosin 1 mg tablet 1 mg PO BEDTIME nightmares 06/09/25 06/09/25 melatonin 3 mg tablet 3 mg PO BEDTIME insomnia 06/09/25 06/09/25 trazodone 100 mg tablet 100 mg PO BEDTIME insomnia 06/09/25 06/09/25 venlafaxine 150 mg 150 mg PO QAM 06/09/25 06/09/25 capsule,extended release 24 hr venlafaxine 75 mg capsule,extended 75 mg PO QAM 06/09/25 06/09/25 release 24 hr Previous Rx's ?Medication ?Instructions ?Recorded albuterol sulfate 90 mcg/actuation 2 puff inhalation Q4-6H PRN 06/09/25 aerosol inhaler (Ventolin HFA) shortness of breath or wheezing #6.7 grams budesonide-formoterol HFA 80 1 puff inhalation BID wheezing 06/15/25 mcg-4.5 mcg/actuation aerosol #10.2 grams inhaler (Symbicort) codeine 10 mg-guaifenesin 100 mg/5 5 ml PO Q6H PRN allergy symptoms 06/15/25 mL oral liquid #120 mL dicyclomine 10 mg capsule 10 mg PO BID 30 days #60 caps 06/15/25 gabapentin 600 mg tablet 600 mg PO Q8H 30 days #90 tabs 06/15/25 metformin 500 mg tablet,extended 500 mg PO DAILY diabetes mellitus 06/15/25 release 24 hr #30 tabs Allergies Allergy/AdvReac Type Severity Reaction Status Date / Time No Known Allergies Allergy Verified 06/18/25 23:07 Review of Systems Constitutional: Constitutional: Denies body ache(s), Denies chills, Denies fever(s) and Denies headache(s) Eyes: Eyes: Denies blurry vision and Denies itchy eyes ENT: Denies vertigo, Denies dizziness and Denies headache(s) Cardiovascular: Cardiovascular: Denies chest pain and Denies dyspnea on exertion Respiratory: Respiratory: Denies cough and Denies dyspnea on exertion Gastrointestinal: Gastrointestinal: Denies abdominal pain, Denies nausea and Denies vomiting Musculoskeletal: Musculoskeletal: Denies back pain Integumentary/Breasts: Skin/Breast: Denies rash Neurologic: Denies vertigo, Denies dizziness and Denies headache(s) Psychiatric: Psychiatric: Denies anxiety Allergic/Immunologic: Allergic/Immunologic: Denies itchy eyes PMFSH Family History Family History (Updated 06/15/25 @ 08:32 by Dolly Vail MA) Other FH: mental illness Substance abuse Social History Social History Housing: Homeless Alcohol intake: former Patient Tobacco Use Status: Former Tobacco user Tobacco use type: Cigarette Cigarettes Per Day: 7 e-Cigarette/Vaping Use: Currently Using Second Hand Smoke Exposure: Yes Advance Directives: No Advance Directives Information Provided: Yes service: No Current occupational status: unemployed Cognitive needs: No Hearing needs: No Vision needs: Yes Physical Exam Vital Signs: Vital Signs: Last Vital Signs Temp 98.2 F 06/19/25 01:47 Pulse 88 06/19/25 01:47 Resp 16 06/19/25 01:47 BP 102/57 L 06/19/25 01:47 Pulse Ox 98 06/19/25 01:47 O2 Del Method Room Air 06/19/25 01:47 BMI result Body Mass Index 49.1 Const: General: healthy appearing, comfortable, no acute distress, alert and awake Nutritional Appearance: well nourished Orientation/consciousness: patient oriented x3 HEENT: Head: Yes normocephalic and Yes atraumatic Throat: Yes posterior oropharynx normal Eyes: Eyelids: Yes eyelids normal Conjunctivae: conjunctivae normal Sclerae: sclerae normal Corneas: corneas normal Pupils: Equal, round and reactive pupils present EOM: EOMs intact bilaterally Neck: Neck: Yes full ROM Resp: Effort & Inspection: normal respiratory effort, able to speak in complete sentences and not labored Cardio: Rate: regular rate Rhythm: regular rhythm GI: Inspection: No distended Palpation (GI): Soft to palpation, not firm, nontender, no guarding and not rigid Skin: General skin exam: no rashes or lesions noted and elasticity normal Neuro: General: patient oriented x3 Cranial nerves: Yes CN's II-XII intact bilaterally, Yes Equal, round and reactive pupils present and Yes Bilaterally intact EOM present Cognition (Neuro): normal cognition Medical Decision Making Medical Decision Making MDM Narrative: 45-year-old female presents for evaluation of medical clearance. She offers no complaints, her vital signs are normal limits. She is awake, alert and oriented. She did provide a urine sample for tox screen. This was positive for opiates, marijuana which the patient admits to using both of. No other illicit substances. She is medically cleared for discharge back to her facility Differential Diagnosis Differential Diagnoses: The differential diagnosis associated with the presentation includes Substance abuse Medical clearance Encephalopathy Homelessness Lab Data Labs: Lab Results 06/19/25 Range/Units 00:38 Urine Opiates Screen POSITIVE H (Not Detect) Ur Buprenorphine Scrn Not Detected (Not Detect) ng/mL Ur Oxycodone Screen Not Detected (Not Detect) ng/mL Urine Methadone Screen Not Detected (Not Detect) ng/mL Urine Fentanyl Screen Not Detected (Not Detect) Ur Barbiturates Screen Not Detected (Not Detect) Ur Phencyclidine Scrn Not Detected (Not Detect) Ur Amphetamines Screen Not Detected (Not Detect) U Benzodiazepines Scrn Not Detected (Not Detect) Urine Cocaine Screen Not Detected (Not Detect) U Marijuana (THC) Screen POSITIVE H (Not Detect) Discharge Plan Discharge Clinical Impression: Encounter for medical clearance for patient hold Patient Disposition: Home, Self-Care Additional Instructions: You were seen in the emergency department today and evaluated. Your medically cleared to return to your home facility Prescriptions: No Action clonidine HCl 0.1 mg tablet 0.1 mg PO BID venlafaxine 75 mg capsule,extended release 24hr 75 mg PO QAM doxazosin 1 mg tablet 1 mg PO BEDTIME clonazepam 1 mg tablet 1 mg PO DAILY PRN (Reason: Anxiety) venlafaxine 150 mg capsule,extended release 24hr 150 mg PO QAM melatonin 3 mg tablet 3 mg PO BEDTIME trazodone 100 mg tablet 100 mg PO BEDTIME aripiprazole [Abilify] 2 mg tablet 2 mg PO BEDTIME albuterol sulfate [Ventolin HFA] 90 mcg/actuation HFA aerosol inhaler 2 puff inhalation Q4-6H PRN (Reason: shortness of breath or wheezing) Qty: 6.7 0RF codeine-guaifenesin 10-100 mg/5 mL liquid 5 ml PO Q6H PRN (Reason: allergy symptoms) Qty: 120 0RF gabapentin 600 mg tablet 600 mg PO Q8H 30 Days Qty: 90 0RF budesonide-formoterol [Symbicort] 80-4.5 mcg/actuation HFA aerosol inhaler 1 puff inhalation BID Qty: 10.2 0RF dicyclomine 10 mg capsule 10 mg PO BID 30 Days Qty: 60 0RF metformin 500 mg tablet extended release 24 hr 500 mg PO DAILY Qty: 30 0RF Interventions: ED Discharge Assessment Last Done: 06/19/25 01:47 Discharge Date/Time: 06/19/25 01:49 Print Language: Ukrainian
[2025-06-19 01:47] VITALS: BP 102/57; PULSE 88; RESP 16; TEMP 36.8; O2SAT 98
== END 2025-06-19 01:49 | disposition home or self-care (01) ==
PROVIDERS: Emergency Provider Emergency Medicine
DX: F12.90 Cannabis use, unspecified, uncomplicated (principal); Z79.899 Other long term (current) drug therapy; Z51.81 Encounter for therapeutic drug level monitoring
CPT/HCPCS: 80307; 99284

== ENCOUNTER 2025-06-29 08:40 | Outpatient (REF) | payer OTHER, SELFPAY | END 2025-06-29 08:41 | disposition home or self-care (01) | LOC: HO.LAB 08:40 | PROVIDERS: PCP Student in an Organized Health Care Education/Training Program; Visit Provider Student in an Organized Health Care Education/Training Program | DX: Z13.89 Encounter for screening for other disorder (principal) ==

== ENCOUNTER 2025-07-01 15:36 | Outpatient (REF) | payer OTHER, SELFPAY ==
[2025-07-01 15:51] LABS: MANUAL DIFF FLAG NO
[2025-07-01 16:31] LABS: Hematocrit 38.0 % (37.0-47.0); Hemoglobin 11.9 g/dl (12.0-16.0); Imm Gran Abs Auto 0.05 X10*3/uL (0.00-0.03); Imm Gran Pct Auto 0.4 % (0.0-0.4); Lymphocytes Absolute Auto 2.1 X10*3/uL (1.2-4.9); Mean Corpuscular HGB Conc 31.3 g/dl (31.0-35.0); Mean Corpuscular Hemoglobin 27.4 pg (27.0-33.0); Mean Corpuscular Volume 87.6 fL (80.0-98.0); NRBC Abs Auto 0.000 X10*3/uL (0.0-0.012); NRBC Pct Auto 0.0 /100WBC (0.0-0.2); Platelet Count 323 X10*3/uL (160-400); Red Blood Count 4.34 X10*6/uL (4.20-5.50); White Blood Count 11.8 X10*3/uL (4.8-10.8)
[2025-07-01 17:39] LABS: Free T4 (Free Thyroxine) 0.84 ng/dL (0.71-1.85)
[2025-07-03 21:37] LABS: Immunoglobulin A 112 mg/dL (47-310)
== END 2025-07-01 15:37 | disposition home or self-care (01) ==
LOC: HO.LAB 15:36
PROVIDERS: PCP Student in an Organized Health Care Education/Training Program; Visit Provider Student in an Organized Health Care Education/Training Program
DX: R63.5 Abnormal weight gain (principal); R79.89 Other specified abnormal findings of blood chemistry; R19.7 Diarrhea, unspecified
CPT/HCPCS: 36415; 82784; 84439; 84443; 85025; 86364

== ENCOUNTER 2025-07-11 19:30 | Emergency (ER) | payer OTHER, SELFPAY ==
[2025-07-11 20:03] VITALS: BP 138/98; PULSE 94; O2SAT 97
[2025-07-11 20:06] VITALS: BP 107/40; PULSE 81; RESP 16; TEMP 36.4; O2SAT 96; BMI 44.8
[2025-07-11 20:53] LABS: Hematocrit 39.0 % (37.0-47.0); Mean Corpuscular Volume 88.2 fL (80.0-98.0); NRBC Abs Auto 0.000 X10*3/uL (0.0-0.012); NRBC Pct Auto 0.0 /100WBC (0.0-0.2); PLT CLUMP 1; Red Blood Count 4.42 X10*6/uL (4.20-5.50); SCAN SMEAR FLAG 1
--- OUTSIDE RECORDS SUMMARY | 2025-07-11 20:53 | XMS_ITS | Encounter Summary ---
Author Organization [employer] Address [address] [place] [address] Care Team Providers Care Med Aide Name Role Phone Lea Rangel NP, Erica Primary Care Provider [phone] Encounter Details Date Type Department Care Team (Late st Contact Info) Description 04/01/2025 Lab Requisition [facility] - Main Lab [address] [facility] [place] [address] Shannon Tate NP [address] [place] [address] Social History Tobacco Use Types [...] on filedocumented in this encounter Care Teams Med Aide Relationship Specialty Start Date End Date Shannon Tate NP [address] [place] [address] PCP - General Psychiatry 04/01/25 documented as of this encounter
--- OUTSIDE RECORDS SUMMARY | 2025-07-11 20:53 | XMS_ITS | Encounter Summary ---
Author Organization [employer] Address [address] [place] [address] Care Team Providers Care Housekeeping Aid Name Role Phone Lea Rangel NP, Erica Primary Care Provider [phone] Encounter Details Date Type Department Care Team (Late st Contact Info) Description 04/01/[address] 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 137 mg/dL LAB CHEMISTRY METHOD 04/01/2025 11:17 AM EDT [facility] Blood Venous blood specimen / Unknown Venipuncture / Unknown 04/01/2025 7:00 AM EDT 04/01/2025 10:03 AM EDT us Shannon Rangel NP LAB BLOOD ORDERABLES Final Re sult [facility] [address] [place] [address], [place] [phone] * Lipid panel with reflex to direct LDL (04/01/2025 7:00 AM EDT) Cholesterol 181 0 - 200 mg/dL LAB CHEMISTRY METHOD 04/01/2025 10:56 AM [facility] Triglycerides 141 0 - 150 mg/dL LAB CHEMISTRY METHOD 04/01/2025 10:56 AM [facility] HDL 53 >=40 mg/dL LAB CHEMISTRY METHOD 04/01/2025 10:56 AM [facility] LDL Calculated 100 0 - 100 mg/dL LAB CHEMISTRY METHOD 04/01/2025 10:56 AM [facility] Comment:Estimated LDL Calcul ated using equation: Total cholesterol - HDL cholesterol - (Triglycerides/5) VLDL Cholesterol Aftab 28.2 mg/dL LAB CHEMISTRY METHOD 04/01/2025 10:56 AM [facility] Non HDL Chol. (LDL+VLDL) 128 <145 mg/dL LAB CHEMISTRY METHOD 04/01/2025 10:56 AM [facility] Chol/HDL Ratio 3.4 0.0 - 4.4 LAB CHEMISTRY METHOD 04/01/2025 10:56 AM [facility] Blood Venous blood specimen / Unknown Venipuncture / Unknown 04/01/2025 7:00 AM EDT 04/01/2025 10:03 AM EDT Shannon Rangel NP LAB BLOOD ORDERABLES Final Re sult Performing Organization Address [facility] Co de Phone Number [facility] [address] [place] [address], [place] [phone] * (ABNORMAL) Glucose, random (04/01/2025 7:00 AM EDT) Glucose 106(H) 70 - 100 mg/dL LAB CHEMISTRY METHOD 04/01/2025 10:56 AM EDT [facility] Blood Venous blood specimen / Unknown Venipuncture / Unknown 04/01/2025 7:00 AM EDT 04/01/2025 10:03 AM EDT Shannon Rangel NP LAB BLOOD ORDERABLES Final Re sult Performing Organization Address [facility] Co de Phone Number [facility] [address] [place] [address], [place] [phone] documented in this encounter Visit Diagnoses Diagnosis Other retirement (current) drug therapy documented in this encounter Care Teams Housekeeping Aid Relationship Specialty Start Date End Date Shannon Tate NP [address] [place] [phone] PCP - General Psychiatry 04/01/25 documented as of this encounter
--- OUTSIDE RECORDS SUMMARY | 2025-07-11 20:53 | XMS_ITS | Encounter Summary ---
Author Organization [employer] Address [address] [place] [address] Care Team Providers Care Corporate Concierge Name Role Phone Lea Rangel NP, Erica Primary Care Provider [phone] Encounter Details Date Type Department Care Team (Late st Contact Info) Description 04/02/2025 Lab Requisition [facility] - Main Lab [address] [facility] [place] [address] Marta Marquez, [address] [address] Other fdc (current) drug therapy [...] DIFFERENTIATION Routine 04/02/2025 7:00 AM EDT Other meterman (current) drug therapy TREPONEMA PALLIDUM ANTIBODY WITH REFLEX TO RPR AND PARTICLE AGGLUTINATION Routine 04/02/2025 7:00 AM EDT Other meterman (current) drug therapy CHLAMYDIA TRACHOMATIS AND NEISSERIA GONORRHOEAE PCR Routine 04/02/2025 7:00 AM EDT Other fdc (current) drug therapy documented in this encounter Results * Chlamydia trachomatis and Neisseria gonorrhoeae molecular study (04/02/2025 7:00 AM EDT) Neisseria gonorrhoeae PCR Negative Negative LAB MOLECULAR DIAGNOSTICS METHOD 04/02/2025 1:04 PM EDT [facility] Chlamydia trachomatis PCR Negative Negative LAB MOLECULAR DIAGNOSTICS METHOD 04/02/2025 1:04 PM EDT [facility] Swab Cervix uteri structure / Unknown Non-blood Collection / Unknown 04/02/2025 7:00 AM EDT 04/02/2025 9:45 AM EDT us Marta Marquez [facility] MICROBIOLOGY - GENERAL ORDERABLES Final Result Performing Organization Address [facility]/ZIP Co de Phone Number [facility] [address] [place] [address], [place] [phone] * Treponema pallidum antibody with reflex to RPR and particle agglutination (04/02/2025 7:00 AM EDT) T. Pallidum Antibodies Negative Negative LAB CHEMISTRY METHOD 04/02/2025 11:00 AM EDT [facility] Blood Venous blood specimen / Unknown Venipuncture / Unknown 04/02/2025 7:00 AM EDT 04/02/2025 9:45 AM EDT us Marta Marquez [facility] BLOOD ORDERABLES Final Result Performing Organization Address [facility]/ZIP Co de Phone Number [facility] [address] [place] [address], [place] [phone] * HIV 1,2 antibody, p24 antigen with reflex to differentiation (04/02/2025 7:00 AM EDT) HIV Combo AB/AG Negative Negative LAB CHEMISTRY METHOD 04/02/2025 11:29 AM EDT [facility] Blood Venous blood specimen / Unknown Venipuncture / Unknown 04/02/2025 7:00 AM EDT 04/02/2025 9:45 AM EDT Narrative [facility] - 04/02/2025 11:29 AM EDT This assay is a 4th generation assay allowing for earlier detection of HIV infection by detecting the presence of the HIV-1 p24 antigen as well as the traditional antibodies to HIV type 1 (including group O) and type 2. Use of a 4th generation assay is the current CDC recommendation for HIV screening. us Marta Marquez NEUROLOGY TECHNOLOGIST LAB BLOOD ORDERABLES Final Result [facility] ([facility]) [facility] [address] [place] [address], documented in this encounter Visit Diagnoses Diagnosis Other fdc (current) drug therapy documented in this encounter Care Teams Corporate Concierge Relationship Specialty Start Date End Date Shannon Tate NP [address] [place] [phone] PCP - General Psychiatry 04/01/25 documented as of this encounter
--- OUTSIDE RECORDS SUMMARY | 2025-07-11 20:53 | XMS_ITS | Clinical Summary ---
Author Organization [address] [facility] Address [address] [place] [address] Phone Care Team Providers Care Chief Design Drafter Name Role Phone Lea Rangel NP, Shannon Primary Care Provider [phone] Social History Tobacco Use Types Packs/Day Years [...] Influencers of Health Screening 04/01/2025 COVID-19 Vaccine (1 - 2024-2 6 season) 2025 Influenza Vaccine (#1) 2025 Cholesterol [...] DIFFERENTIATION Routine 04/02/2025 7:00 AM EDT Other superintendent marine oil terminal (current) drug therapy LIPID PANEL WITH REFLEX TO DIRECT LDL Routine 04/01/2025 7:00 AM EDT Other superintendent marine oil terminal (current) drug therapy from Last 3 Months or Most Recently Relevant to Health Maintenance Results * HIV 1,2 antibody, p24 antigen with reflex to differentiation (04/02/2025 7:00 AM EDT) HIV Combo AB/AG Negative Negative LAB CHEMISTRY METHOD 04/02/2025 11:29 AM EDT [facility] Blood Venous blood specimen / Unknown Venipuncture / Unknown 04/02/2025 7:00 AM EDT 04/02/2025 9:45 AM EDT Narrative [facility] - 04/02/2025 11:29 AM [...] recommendation for HIV screening. us Marta Marquez [facility] BLOOD ORDERABLES Final Result [facility] [address] [place] [address], [place] [phone] * Lipid panel with reflex to direct LDL (04/01/2025 7:00 AM EDT) Cholesterol 181 0 - 200 mg/dL LAB CHEMISTRY METHOD 04/01/2025 10:[address] [facility] Triglycerides 141 0 - 150 mg/dL LAB CHEMISTRY METHOD 04/01/2025 10:[address] [facility] HDL 53 >=40 mg/dL LAB CHEMISTRY METHOD 04/01/2025 10:[address] [facility] LDL Calculated 100 0 - 100 mg/dL LAB CHEMISTRY METHOD 04/01/2025 10:[address] [facility] Comment:Estimated LDL Calcul ated using equation: Total cholesterol - HDL cholesterol - (Triglycerides/5) VLDL Cholesterol Aftab 28.2 mg/dL LAB CHEMISTRY METHOD 04/01/2025 10:[address] [facility] Non HDL Chol. (LDL+VLDL) 128 <145 mg/dL LAB CHEMISTRY METHOD 04/01/2025 10:[address] [facility] Chol/HDL Ratio 3.4 0.0 - 4.4 LAB CHEMISTRY METHOD 04/01/2025 10:[address] [facility] Blood Venous blood specimen / Unknown Venipuncture / Unknown 04/01/2025 7:00 AM EDT 04/01/2025 10:03 AM EDT Shannon Rangel NP LAB BLOOD ORDERABLES Final Re sult [facility] [address] [place] [address], from Last 3 Months or Most Recently Relevant to Health Maintenance Care Teams Chief Design Drafter Relationship Specialty Start Date End Date Shannon Tate NP [address] [place] [phone] PCP - General Psychiatry 04/01/25
--- OUTSIDE RECORDS SUMMARY | 2025-07-11 20:53 | XMS_ITS | Encounter Summary ---
Author Organization [employer] Address [address] [place] [address] Care Team Providers Care Retail Cosmetics Sales Beauty Advisor Name Role Phone Lea Rangel NP, Erica Primary Care Provider [phone] Encounter Details Date Type Department Care Team (Late st Contact Info) Description 04/02/2025 Lab Requisition [facility] - Main Lab [address] [facility] [facility] [address] [facility] [place] [address] Marta Marquez, [address] [address] Social History Tobacco Use Types [...] on filedocumented in this encounter Care Teams Retail Cosmetics Sales Beauty Advisor Relationship Specialty Start Date End Date Shannon Tate NP [address] [place] [phone] PCP - General Psychiatry 04/01/25 documented as of this encounter
[2025-07-11 20:54] LABS: Hemoglobin 12.1 g/dl (12.0-16.0); Imm Gran Abs Auto 0.05 X10*3/uL (0.00-0.03); Imm Gran Pct Auto 0.4 % (0.0-0.4); Lymphocytes Absolute Auto 1.8 X10*3/uL (1.2-4.9); MANUAL DIFF FLAG SCAN; Mean Corpuscular HGB Conc 31.0 g/dl (31.0-35.0); Mean Corpuscular Hemoglobin 27.4 pg (27.0-33.0)
[2025-07-11 21:03] LABS: Anion Gap 17 (12-20); Blood Urea Nitrogen 8 mg/dL (9-16); Calcium 9.0 mg/dL (8.4-10.2); Carbon Dioxide 22 mmol/L (22-29); Chloride 105 mmol/L (96-108); Creatinine Clr Calc Pharmacy 134.0; Estimated Glomerular Filt Rate > 60; Potassium 3.6 mmol/L (3.3-5.1); Sodium 140 mmol/L (135-145)
--- NOTE | 2025-07-11 21:27 | ED.MEDCLEAR ---
HPI - Medical Clearance General Chief complaint: Medical Clearance Stated complaint: etoh, nausea Time Seen by Provider: 07/11/25 21:24 History of Present Illness ED Provider: chitra HPI Narrative: 45 F kendra/ETOH use. Need medical clearance for fpc return. No sx. No acute psych complaints. Related Information Home Medications ?Medication ?Instructions ?Recorded ?Confirmed aripiprazole 2 mg tablet (Abilify) 2 mg PO BEDTIME depressive disorder 06/09/25 06/29/25 clonazepam 1 mg tablet 1 mg PO DAILY PRN Anxiety 06/09/25 06/29/25 doxazosin 1 mg tablet 1 mg PO BEDTIME nightmares 06/09/25 06/29/25 melatonin 3 mg tablet 3 mg PO BEDTIME insomnia 06/09/25 06/29/25 trazodone 100 mg tablet 100 mg PO BEDTIME insomnia 06/09/25 06/29/25 venlafaxine 150 mg 150 mg PO QAM 06/09/25 06/29/25 capsule,extended release 24 hr venlafaxine 75 mg capsule,extended 75 mg PO QAM 06/09/25 06/29/25 release 24 hr clonidine HCl 0.1 mg tablet 0.1 mg PO TID 06/29/25 06/29/25 Previous Rx's ?Medication ?Instructions ?Recorded albuterol sulfate 90 mcg/actuation 2 puff inhalation Q4-6H PRN 06/09/25 aerosol inhaler (Ventolin HFA) shortness of breath or wheezing #6.7 grams budesonide-formoterol HFA 80 1 puff inhalation BID wheezing 06/15/25 mcg-4.5 mcg/actuation aerosol #10.2 grams inhaler (Symbicort) gabapentin 600 mg tablet 600 mg PO Q8H 30 days #90 tabs 06/15/25 metformin 500 mg tablet,extended 500 mg PO DAILY diabetes mellitus 06/15/25 release 24 hr #30 tabs loperamide 2 mg tablet 2 mg PO QID PRN loose stool #30 06/29/25 tabs dicyclomine 10 mg capsule 10 mg PO BID PRN abdominal pain 07/14/25 #60 caps Allergies Allergy/AdvReac Type Severity Reaction Status Date / Time No Known Allergies Allergy Verified 07/11/25 20:09 PMF Family History Family History Other FH: mental illness Substance abuse Social History Social History Housing: Homeless Alcohol intake: former Patient Tobacco Use Status: Former Tobacco user Tobacco use type: Cigarette Cigarettes Per Day: 7 e-Cigarette/Vaping Use: Currently Using Second Hand Smoke Exposure: Yes Substance Use Type: Crack/Cocaine service: No Current occupational status: unemployed Cognitive needs: No Hearing needs: No Vision needs: Yes Physical Exam Exam: Exam: General awake, alert, oriented, non-psychotic, and interactive. Grossly well perfused. No psycho-motor agitation or obvious visible neurologic deficits. Vital Signs: Vital Signs: Last Vital Signs Temp 98.0 F 07/12/25 01:48 Pulse 83 07/12/25 01:48 Resp 18 07/12/25 01:48 BP 123/73 07/12/25 01:48 Pulse Ox 96 07/12/25 01:48 O2 Del Method Room Air 07/12/25 01:48 BMI result Body Mass Index 44.8 Medical Decision Making Medical Decision Making MDM Narrative: 45-year-old female sent from nearby residential facility telling staff here at triage that she needs clearance to go back. She only had mild knowledge at that time. She has no complaints to me. There is acknowledgement of alcohol and crack cocaine use. There's no symptomatology to suggest acute medical emergency in general or related to these substance uses. The patient has a steady gait, clear speech, and desires not to remain in the emergency department. No indication to keep patient against her will. She's not suicidal, she's not unsteady or grossly visibly intoxicated. Lab Data [facility] Lab Attestation statement: I reviewed the patient's lab results. 07/11/25 20:41 07/11/25 20:41 Labs: Lab Results 07/11/25 07/11/25 07/11/25 Range/Units 20:41 21:56 22:45 WBC 11.5 H (4.8-10.8) X10*3/uL RBC 4.42 (4.20-5.50) X10*6/uL Hgb 12.1 (12.0-16.0) g/dl Hct 39.0 (37.0-47.0) % MCV 88.2 (80.0-98.0) fL MCH 27.4 (27.0-33.0) pg MCHC 31.0 (31.0-35.0) g/dl RDW 14.6 (11.0-16.0) % Plt Count TNP MPV 10.0 (9.4-12.3) fL Immature Gran % (Auto) 0.4 (0.0-0.4) % Neut % (Auto) 77.9 H (45-73) % Lymph % (Auto) 15.5 L (20-40) % Forrest % (Auto) 4.7 (2-11) % Eos % (Auto) 1.0 (0-4) % Baso % (Auto) 0.5 (0-2) % Lymph # (Auto) 1.8 (1.2-4.9) X10*3/uL Forrest # (Auto) 0.5 (0.1-1.2) X10*3/uL Eos # (Auto) 0.1 (0.0-0.4) X10*3/uL Baso # (Auto) 0.1 (0.0-0.2) X10*3/uL Abs Immat Gran (auto) 0.05 H (0.00-0.03) X10*3/uL Absolute Neuts (auto) 8.9 H (2.0-8.3) x10*3/uL Absolute Nucleated RBC 0.000 (0.0-0.012) X10*3/uL Nucleated RBC % (auto) 0.0 (0.0-0.2) /100WBC Smear Tech's Comments VERIFIED Sodium 140 (135-145) mmol/L Potassium 3.6 (3.3-5.1) mmol/L Chloride 105 (96-108) mmol/L Carbon Dioxide 22 (22-29) mmol/L Anion Gap 17 (12-20) BUN 8 L (9-16) mg/dL Creatinine 0.63 (0.5-1.4) mg/dL Estim Creat Clear Calc 134.0 Estimated GFR > 60 Random Glucose 147 H (60-115) mg/dL Calcium 9.0 (8.4-10.2) mg/dL Urine Color Yellow Urine Appearance Clear Urine pH 5.5 (5.0-9.0) Ur Specific Salix <= 1.005 (1.005-1.025) Urine Protein Negative (Neg-Trace) mg/dL Urine Glucose (UA) Negative (Negative) mg/dL Urine Ketones Negative (Negative) mg/dL Urine Blood Small (1+) H (Negative) Urine Nitrite Negative (Negative) Ur Leukocyte Esterase Trace H (Negative) Urine RBC 0-2 (0-2) /HPF Urine WBC 6-10 H (0-5) /HPF Ur Squamous Epith Cells 3-5 (0-2) /HPF Urine Bacteria 1+ (None Seen) Hyaline Casts 0-2 (0-2) /LPF Urine Opiates Screen Not Detected (Not Detect) Ur Buprenorphine Scrn Not Detected (Not Detect) ng/mL Ur Oxycodone Screen Not Detected (Not Detect) ng/mL Urine Methadone Screen Not Detected (Not Detect) ng/mL Urine Fentanyl Screen Not Detected (Not Detect) Ur Barbiturates Screen Not Detected (Not Detect) Ur Phencyclidine Scrn Not Detected (Not Detect) Ur Amphetamines Screen Not Detected (Not Detect) U Benzodiazepines Scrn Not Detected (Not Detect) Urine Cocaine Screen POSITIVE H (Not Detect) U Marijuana (THC) Screen Not Detected (Not Detect) Hepatitis A IgM Ab Nonreactive (Nonreactive) Hep Bs Antigen Negative (Negative) Hep Bs Antibody REACTIVE (Nonreactive) Hep B Core Total Ab Nonreactive (Nonreactive) Hepatitis C Ab (EIA) Reactive H (Nonreactive) HIV 1&2 Ab/P24 Ag 4thGn Nonreactive (Nonreactive) Discharge Plan Discharge Clinical Impression: Alcohol abuse Patient Disposition: Home, Self-Care Instructions: Abuse of Alcohol (ED) Additional Instructions: Patient was evaluated no acute emergent medical condition identified Prescriptions: No Action dicyclomine 10 mg capsule 10 mg PO BID PRN (Reason: abdominal pain) Qty: 60 0RF venlafaxine 75 mg capsule,extended release 24hr 75 mg PO QAM doxazosin 1 mg tablet 1 mg PO BEDTIME clonazepam 1 mg tablet 1 mg PO DAILY PRN (Reason: Anxiety) venlafaxine 150 mg capsule,extended release 24hr 150 mg PO QAM melatonin 3 mg tablet 3 mg PO BEDTIME trazodone 100 mg tablet 100 mg PO BEDTIME aripiprazole [Abilify] 2 mg tablet 2 mg PO BEDTIME albuterol sulfate [Ventolin HFA] 90 mcg/actuation HFA aerosol inhaler 2 puff inhalation Q4-6H PRN (Reason: shortness of breath or wheezing) Qty: 6.7 0RF clonidine HCl 0.1 mg tablet 0.1 mg PO TID loperamide 2 mg tablet 2 mg PO QID PRN (Reason: loose stool) Qty: 30 0RF gabapentin 600 mg tablet 600 mg PO Q8H 30 Days Qty: 90 0RF budesonide-formoterol [Symbicort] 80-4.5 mcg/actuation HFA aerosol inhaler 1 puff inhalation BID Qty: 10.2 0RF metformin 500 mg tablet extended release 24 hr 500 mg PO DAILY Qty: 30 0RF Interventions: ED Discharge Assessment Last Done: 07/12/25 01:48 Discharge Date/Time: 07/12/25 01:51 Print Language: Divehi
[2025-07-11 22:05] LABS: White Blood Count 11.5 X10*3/uL (4.8-10.8)
[2025-07-11 22:48] VITALS: BP 90/57; PULSE 77; RESP 16; TEMP 36.6; O2SAT 98
[2025-07-11 22:57] LABS: Appearance Urine Clear; Glucose Urine UA Negative (Negative); PH 5.5 (5.0-9.0); Specific Gravity - Urine <= 1.005 (1.005-1.025); UMIC TRIGGER UACC YES
[2025-07-11 23:07] LABS: Cannabinoid Screen Urine Not Detected (Not Detect)
[2025-07-11 23:09] LABS: UACC Culture Trigger YES
[2025-07-12 01:48] VITALS: BP 123/73; PULSE 83; RESP 18; TEMP 36.7; O2SAT 96
[2025-07-13 05:14] LABS: HBS Num1 35.27 mIU/mL (0-7.99); HBc Num1 0.13 S/CO (0.00-0.79); HBsAGNum1 0.30 S/CO (0.00-0.99); HIV Num 1 0.06 S/CO (0.00-0.99); Hepatitis A Antibody IgM 0.19 Index (0-0.79); Hepatitis B Surface Antigen Negative (Negative); ~HepC Num1 13.84 S/CO (0.00-0.79); ~Hepatitis A Antibody IgM Nonreactive (Nonreactive); ~Hepatitis B Surface Antibody REACTIVE (Nonreactive); ~Hepatitis C Antibody Reactive (Nonreactive)
== END 2025-07-12 01:51 | disposition home or self-care (01) ==
PROVIDERS: Emergency Provider Emergency Medicine; PCP Student in an Organized Health Care Education/Training Program
DX: F10.10 Alcohol abuse, uncomplicated (principal); R11.0 Nausea; Y90.9 Presence of alcohol in blood, level not specified; Z51.81 Encounter for therapeutic drug level monitoring; Z79.899 Other long term (current) drug therapy; Z87.891 Personal history of nicotine dependence
CPT/HCPCS: 36415; 80048; 80307; 81001; 81003; 85025; 86704; 86706; 86709; 86803; 87086; 87340; 87389; 99284

== ENCOUNTER 2025-07-22 13:38 | Outpatient (REF) | payer OTHER, SELFPAY ==
[2025-07-22 14:28] LABS: Leukocytes Stool Qualitative NEGATIVE (NEGATIVE)
--- OUTSIDE RECORDS SUMMARY | 2025-07-22 21:08 | XMS_ITS | Encounter Summary ---
Author Organization [employer] Address [address] [place] [address] Care Team Providers Care Memorial Marker Designer Name Role Phone Lea Rangel NP, Erica Primary Care Provider [phone] Encounter Details Date Type Department Care Team (Late st Contact Info) Description 04/02/2025 Lab Requisition [facility] - Main Lab [address] [facility] [place] [address] Marta Marquez, [address] [address] Social History Tobacco Use Types [...] on filedocumented in this encounter Care Teams Memorial Marker Designer Relationship Specialty Start Date End Date Shannon Tate NP [address] [place] [phone] PCP - General Psychiatry 04/01/25 documented as of this encounter
--- OUTSIDE RECORDS SUMMARY | 2025-07-22 21:09 | XMS_ITS | Clinical Summary ---
Author Organization [address] [facility] Address [address] [place] [address] Phone Care Team Providers Care Rail Director Name Role Phone Lea Rangel NP, Shannon Primary Care Provider [phone] Social History Tobacco Use Types Packs/Day Years [...] DIFFERENTIATION Routine 04/02/2025 7:00 AM EDT Other terminal computer operator (current) drug therapy LIPID PANEL WITH REFLEX TO DIRECT LDL Routine 04/01/2025 7:00 AM EDT Other terminal computer operator (current) drug therapy from Last 3 Months or Most Recently Relevant to Health Maintenance Results * HIV 1,2 antibody, p24 antigen with reflex to differentiation (04/02/2025 7:00 AM EDT) HIV Combo AB/AG Negative Negative LAB CHEMISTRY METHOD 04/02/2025 11:29 AM EDT [facility] Blood Venous blood specimen / Unknown Venipuncture / Unknown 04/02/2025 7:00 AM EDT 04/02/2025 9:45 AM EDT Narrative [facility] - 04/02/2025 11:29 AM [...] recommendation for HIV screening. us Marta Marquez [facility] LAB BLOOD ORDERABLES Final Result [facility] [address] [place] [address], [place] [phone] * Lipid panel with reflex to direct LDL (04/01/2025 7:00 AM EDT) Cholesterol 181 0 - 200 mg/dL LAB CHEMISTRY METHOD 04/01/2025 10:56 AM [facility] Triglycerides 141 0 - 150 mg/dL LAB CHEMISTRY METHOD 04/01/2025 10:56 AM [facility] HDL 53 >=40 mg/dL LAB CHEMISTRY METHOD 04/01/2025 10:56 AM [facility] LDL Calculated 100 0 - 100 mg/dL LAB CHEMISTRY METHOD 04/01/2025 10:56 AM [facility] Comment:Estimated LDL Calcul ated using equation: Total cholesterol - HDL cholesterol - (Triglycerides/5) VLDL Cholesterol Aftab 28.2 mg/dL LAB CHEMISTRY METHOD 04/01/2025 10:56 AM [facility] Non HDL Chol. (LDL+VLDL) 128 <145 mg/dL LAB CHEMISTRY METHOD 04/01/2025 10:56 AM [facility] Chol/HDL Ratio 3.4 0.0 - 4.4 LAB CHEMISTRY METHOD 04/01/2025 10:56 AM [facility] Blood Venous blood specimen / Unknown Venipuncture / Unknown 04/01/2025 7:00 AM EDT 04/01/2025 10:03 AM EDT Shannon Rangel NP LAB BLOOD ORDERABLES Final Re sult [facility] [address] [place] [address], from Last 3 Months or Most Recently Relevant to Health Maintenance Care Teams Rail Director Relationship Specialty Start Date End Date Shannon Tate NP [address] [place] [phone] PCP - General Psychiatry 04/01/25
--- OUTSIDE RECORDS SUMMARY | 2025-07-22 21:09 | XMS_ITS | Encounter Summary ---
Author Organization [employer] Address [address] [place] [address] Care Team Providers Care Pole Shaver Helper Name Role Phone Lea Rangel NP, Erica Primary Care Provider [phone] Encounter Details Date Type Department Care Team (Late st Contact Info) Description 04/01/2025 Lab Requisition [facility] - Main Lab [address] [facility] [place] [address] Shannon Tate NP [address] [place] [address] Social History Tobacco Use Types [...] on filedocumented in this encounter Care Teams Pole Shaver Helper Relationship Specialty Start Date End Date Shannon Tate NP [address] [place] [address] PCP - General Psychiatry 04/01/25 documented as of this encounter
--- OUTSIDE RECORDS SUMMARY | 2025-07-22 21:09 | XMS_ITS | Encounter Summary ---
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 137 mg/dL LAB CHEMISTRY METHOD 04/01/2025 11:17 AM EDT [facility] Blood Venous blood specimen / Unknown Venipuncture / Unknown 04/01/2025 7:00 AM EDT 04/01/2025 10:03 AM EDT us Shannon Rangel NP LAB BLOOD ORDERABLES Final Re sult [facility] [address] [place] [address], [place] [phone] * Lipid panel with reflex to direct LDL (04/01/2025 7:00 AM EDT) Cholesterol 181 0 - 200 mg/dL LAB CHEMISTRY METHOD 04/01/2025 10:56 AM [facility] Triglycerides 141 0 - 150 mg/dL LAB CHEMISTRY METHOD 04/01/2025 10:56 AM [facility] HDL 53 >=40 mg/dL LAB CHEMISTRY METHOD 04/01/2025 10:56 AM [facility] LDL Calculated 100 0 - 100 mg/dL LAB CHEMISTRY METHOD 04/01/2025 10:56 AM [facility] Comment:Estimated LDL Calcul ated using equation: Total cholesterol - HDL cholesterol - (Triglycerides/5) VLDL Cholesterol Aftab 28.2 mg/dL LAB CHEMISTRY METHOD 04/01/2025 10:56 AM [facility] Non HDL Chol. (LDL+VLDL) 128 <145 mg/dL LAB CHEMISTRY METHOD 04/01/2025 10:56 AM [facility] Chol/HDL Ratio 3.4 0.0 - 4.4 LAB CHEMISTRY METHOD 04/01/2025 10:56 AM [facility] Blood Venous blood specimen / Unknown Venipuncture / Unknown 04/01/2025 7:00 AM EDT 04/01/2025 10:03 AM EDT Shannon Rangel NP LAB BLOOD ORDERABLES Final Re sult Performing Organization Address [facility] Co de Phone Number [facility] [address] [place] [address], [place] [phone] * (ABNORMAL) Glucose, random (04/01/2025 7:00 AM EDT) Glucose 106(H) 70 - 100 mg/dL LAB CHEMISTRY METHOD 04/01/2025 10:56 AM EDT [facility] Blood Venous blood specimen / Unknown Venipuncture / Unknown 04/01/2025 7:00 AM EDT 04/01/2025 10:03 AM EDT Shannon Rangel NP LAB BLOOD ORDERABLES Final Re sult Performing Organization Address [facility] Co de Phone Number [facility] [address] [place] [address], [place] [phone] documented in this encounter Visit Diagnoses Diagnosis Other residential (current) drug therapy documented in this encounter Care Teams Final Inspector Relationship Specialty Start Date End Date Shannon Tate NP [address] [place] [phone] PCP - General Psychiatry 04/01/25 documented as of this encounter
--- OUTSIDE RECORDS SUMMARY | 2025-07-22 21:09 | XMS_ITS | Encounter Summary ---
Author Organization [employer] Address [address] [place] [address] Care Team Providers Care Denture Contour Wire Specialist Name Role Phone Lea Rangel NP, Erica Primary Care Provider [phone] Encounter Details Date Type Department Care Team (Late st Contact Info) Description 04/02/2025 Lab Requisition [facility] - Main Lab [address] [facility] [place] [address] Marta Marquez, [address] [address] Other retirement (current) drug therapy Social History Tobacco Use [...] DIFFERENTIATION Routine 04/02/2025 7:00 AM EDT Other supervisor long goods (current) drug therapy TREPONEMA PALLIDUM ANTIBODY WITH REFLEX TO RPR AND PARTICLE AGGLUTINATION Routine 04/02/2025 7:00 AM EDT Other supervisor long goods (current) drug therapy CHLAMYDIA TRACHOMATIS AND NEISSERIA GONORRHOEAE PCR Routine 04/02/2025 7:00 AM EDT Other retirement (current) drug therapy documented in this encounter Results * Chlamydia trachomatis and Neisseria gonorrhoeae molecular study (04/02/2025 7:00 AM EDT) Neisseria gonorrhoeae PCR Negative Negative LAB MOLECULAR DIAGNOSTICS METHOD 04/02/2025 1:04 PM EDT [facility] Chlamydia trachomatis PCR Negative Negative LAB MOLECULAR DIAGNOSTICS METHOD 04/02/2025 1:04 PM EDT [facility] Swab Cervix uteri structure / Unknown Non-blood Collection / Unknown 04/02/2025 7:00 AM EDT 04/02/2025 9:45 AM EDT us Marta Marquez [facility] MICROBIOLOGY - GENERAL ORDERABLES Final Result Performing Organization Address [facility]/ZIP Co de Phone Number [facility] [address] [place] [address], [place] [phone] * Treponema pallidum antibody with reflex to RPR and particle agglutination (04/02/2025 7:00 AM EDT) T. Pallidum Antibodies Negative Negative LAB CHEMISTRY METHOD 04/02/2025 11:00 AM EDT [facility] Blood Venous blood specimen / Unknown Venipuncture / Unknown 04/02/2025 7:00 AM EDT 04/02/2025 9:45 AM EDT us Marta Marquez [facility] BLOOD ORDERABLES Final Result Performing Organization Address [facility]/ZIP Co de Phone Number [facility] [address] [place] [address], [place] [phone] * HIV 1,2 antibody, p24 antigen with reflex to differentiation (04/02/2025 7:00 AM EDT) HIV Combo AB/AG Negative Negative LAB CHEMISTRY METHOD 04/02/2025 11:29 AM EDT [facility] Blood Venous blood specimen / Unknown Venipuncture / Unknown 04/02/2025 7:00 AM EDT 04/02/2025 9:45 AM EDT Narrative [facility] - 04/02/2025 11:29 AM EDT This assay is a 4th generation assay allowing for earlier detection of HIV infection by detecting the presence of the HIV-1 p24 antigen as well as the traditional antibodies to HIV type 1 (including group O) and type 2. Use of a 4th generation assay is the current CDC recommendation for HIV screening. us Marta Marquez SEARCH MARKETING COORDINATOR LAB BLOOD ORDERABLES Final Result [facility] [address] [place] [address], documented in this encounter Visit Diagnoses Diagnosis Other retirement (current) drug therapy documented in this encounter Care Teams Denture Contour Wire Specialist Relationship Specialty Start Date End Date Shannon Tate NP [address] [place] [phone] PCP - General Psychiatry 04/01/25 documented as of this encounter
== END 2025-07-22 13:39 | disposition home or self-care (01) ==
LOC: HO.LNP 13:38
PROVIDERS: Visit Provider Student in an Organized Health Care Education/Training Program
DX: R19.7 Diarrhea, unspecified (principal)
CPT/HCPCS: 83631; 83993; 87329; 89055

== ENCOUNTER 2025-08-03 17:52 | Emergency (ER) | payer OTHER, SELFPAY ==
--- NOTE | ~2025-08-03 | XR_ITS ---
CLINICAL HISTORY: coughing. pneumonia 2 view chest x-ray. Comparison: 06/09/2025 Findings: No consolidation or effusion. Cardiac and mediastinal contours are stable. Bones unremarkable. Impression: 1. No acute pulmonary disease. This document has been electronically signed by: Yosef Nielsen MD on 08/03/2025 19:13:45
[2025-08-03 18:22] VITALS: BP 134/70; PULSE 96; RESP 18; TEMP 36.2; O2SAT 97; BMI 36.6
--- NOTE | 2025-08-03 18:27 | ED.GENADULT ---
HPI - General Adult General Chief complaint: Upper Respiratory Symptoms Stated complaint: ? COVID Time Seen by Provider: 08/03/25 21:42 History of Present Illness ED Provider: Damaso WAYNE narrative: The patient is a 45-year-old female with a history of opioid use disorder, chronic back pain, major depression, anxiety, panic attacks, PTSD, ADHD, and prediabetes. She says that she believes she was recently exposed to someone with the COVID. She has felt weak and tired over the last 24 hours. She has a bit this had some decreased oral intake. She has had a cough. While waiting to be seen in the emergency room she thinks she has also developed some loose stools. She wants to make sure that she does not have COVID. Related Data Home Medications ?Medication ?Instructions ?Recorded ?Confirmed aripiprazole 2 mg tablet (Abilify) 2 mg PO BEDTIME depressive disorder 06/09/25 07/21/25 clonazepam 1 mg tablet 1 mg PO DAILY PRN Anxiety 06/09/25 07/21/25 doxazosin 1 mg tablet 1 mg PO BEDTIME nightmares 06/09/25 07/21/25 melatonin 3 mg tablet 3 mg PO BEDTIME insomnia 06/09/25 07/21/25 trazodone 100 mg tablet 100 mg PO BEDTIME insomnia 06/09/25 07/21/25 venlafaxine 150 mg 150 mg PO QAM 06/09/25 07/21/25 capsule,extended release 24 hr venlafaxine 75 mg capsule,extended 75 mg PO QAM 06/09/25 07/21/25 release 24 hr clonidine HCl 0.1 mg tablet 0.1 mg PO TID 06/29/25 07/21/25 atomoxetine 25 mg capsule 25 mg PO QAM 07/21/25 07/21/25 Previous Rx's ?Medication ?Instructions ?Recorded albuterol sulfate 90 mcg/actuation 2 puff inhalation Q4-6H PRN 06/09/25 aerosol inhaler (Ventolin HFA) shortness of breath or wheezing #6.7 grams budesonide-formoterol HFA 80 1 puff inhalation BID wheezing 06/15/25 mcg-4.5 mcg/actuation aerosol #10.2 grams inhaler (Symbicort) loperamide 2 mg tablet 2 mg PO QID PRN loose stool #30 06/29/25 tabs dicyclomine 10 mg capsule 10 mg PO BID PRN abdominal pain 07/14/25 #60 caps metformin 500 mg tablet,extended 500 mg PO DAILY #90 tabs 07/17/25 release 24 hr (Glucophage XR) hydroxyzine HCl 50 mg tablet 50 mg PO TID PRN anxiety #60 tabs 07/21/25 gabapentin 600 mg tablet 600 mg PO Q8H 30 days #90 tabs 07/24/25 budesonide-formoterol HFA 160 2 puff inhalation BID #10.2 grams 08/03/25 mcg-4.5 mcg/actuation aerosol inhaler Allergies Allergy/AdvReac Type Severity Reaction Status Date / Time No Known Allergies Allergy Verified 08/04/25 02:11 Review of Systems Review of Systems: Yes all other systems are reviewed and are negative [facility] Family History Family History (Updated 07/20/25 @ 10:18 by Concepción Alarcon MA) Mother No problems noted. Father No problems noted. Other FH: mental illness Substance abuse Social History Social History Housing: Homeless Alcohol intake: former Patient Tobacco Use Status: Former Tobacco user Tobacco use type: Cigarette Cigarettes Per Day: 7 e-Cigarette/Vaping Use: Currently Using Second Hand Smoke Exposure: Yes Substance Use Type: Crack/Cocaine Advance Directives: No Advance Directives Information Provided: Yes service: No Current occupational status: unemployed Cognitive needs: No Hearing needs: No Vision needs: Yes Physical Exam ED Vital Signs: Vital Signs - 24 hr 08/03/25 18:22 08/03/25 21:56 Temperature 97.2 F 97.2 F Pulse Rate 96 96 Respiratory Rate 18 18 Blood Pressure 134/70 134/70 Pulse Oximetry 97 97 Oxygen Delivery Method Room Air Room Air BMI result Body Mass Index 36.6 Const Other: The patient was awake, alert, cooperative, in no distress. Orientation/consciousness: patient oriented x3 HENMT Other: The face is symmetrical. ?Mucous membranes moist. Posterior pharynx is normal Eyes Other: Pupils are round equal, conjunctivae are clear, extraocular movements intact Neck Neck: Yes normal visual inspection, Yes full ROM and Yes no lymphadenopathy Resp Other: No increased work of breathing. There is some slight wheezing bilaterally that is exacerbated by coughing. No focal crackles Cardio Rate: regular rate Rhythm: regular rhythm Heart sounds: S1 normal heart sound present and S2 normal heart sound present GI Other: Abdomen is soft and nontender Skin Other: The skin is dry and unremarkable Neuro General: patient oriented x3, gait normal, tone normal, moves all extremities, no focal motor deficits and CN's II-XI intact bilaterally Extrem Other: No peripheral edema Course Course Course Narrative: RmE: 45-year-old female presents to ED for URI symptoms. Patient is exposed to individuals with COVID. Patient states fatigue and cough. Swabs x-ray ordered. Medical Decision Making Medical Decision Making [facility] Narrative: The patient is a 45-year-old woman who has felt unwell with respiratory symptoms and now some diarrhea who wanted to make sure she did not have COVID and so she came to the emergency room. She has a an unremarkable clinical exam with the exception of some scattered wheezes which I think are likely related to her smoking history. Her vital signs are normal. She has a nontoxic appearance and demeanor. She has a negative chest x-ray. She has tested, influenza, RSV, and strep. I suspect she has some other kind of a viral illness. She will be advised to use ibuprofen and acetaminophen. Lots of fluids. I have sent a prescription for a formoterol budesonide inhaler as she has some wheezes. She is encouraged to reduce smoking. She should follow up with the regular doctor. Lab Data Labs: Lab Results 08/03/25 Range/Units 18:31 Influenza Type A (PCR) NEGATIVE (Negative) Influenza Type B (PCR) NEGATIVE (Negative) RSV RNA Qual (PCR) NEGATIVE (Negative) SARS-CoV-2 RNA (RT-PCR) NEGATIVE (Negative) S. pyogenes GrpA PAOLA Negative (Negative) Discharge Plan Discharge Clinical Impression: Viral respiratory illness, Wheezing Patient Disposition: Home, Self-Care Instructions: How to Use a Metered-Dose Inhaler (ED) Additional Instructions: You have tested negative for COVID, the flu, and RSV. You have also tested negative for strep. Your chest x-ray does not show any pneumonia. I think you likely have some kind of viral illness that will eventually get better on its own. You have some mild wheezing when you breathe. I have sent a prescription for an inhaler which you may use puffs every 4-6 hours as needed when you are not feeling well. On a good day you can simply take 1 puff in the morning and 1 puff in the evening. Please do your best to minimize cigarette smoking. Drink a lot of fluids. Follow up with your regular doctor. Return to the emergency room if significantly worse. Prescriptions: New budesonide-formoterol 160-4.5 mcg/actuation HFA aerosol inhaler 2 puff inhalation BID Qty: 10.2 0RF No Action dicyclomine 10 mg capsule 10 mg PO BID PRN (Reason: abdominal pain) Qty: 60 0RF metformin [Glucophage XR] 500 mg tablet extended release 24 hr 500 mg PO DAILY Qty: 90 1RF gabapentin 600 mg tablet 600 mg PO Q8H 30 Days Qty: 90 1RF venlafaxine 75 mg capsule,extended release 24hr 75 mg PO QAM doxazosin 1 mg tablet 1 mg PO BEDTIME clonazepam 1 mg tablet 1 mg PO DAILY PRN (Reason: Anxiety) venlafaxine 150 mg capsule,extended release 24hr 150 mg PO QAM melatonin 3 mg tablet 3 mg PO BEDTIME trazodone 100 mg tablet 100 mg PO BEDTIME aripiprazole [Abilify] 2 mg tablet 2 mg PO BEDTIME albuterol sulfate [Ventolin HFA] 90 mcg/actuation HFA aerosol inhaler 2 puff inhalation Q4-6H PRN (Reason: shortness of breath or wheezing) Qty: 6.7 0RF clonidine HCl 0.1 mg tablet 0.1 mg PO TID loperamide 2 mg tablet 2 mg PO QID PRN (Reason: loose stool) Qty: 30 0RF budesonide-formoterol [Symbicort] 80-4.5 mcg/actuation HFA aerosol inhaler 1 puff inhalation BID Qty: 10.2 0RF atomoxetine 25 mg capsule 25 mg PO QAM hydroxyzine HCl 50 mg tablet 50 mg PO TID PRN (Reason: anxiety ) Qty: 60 0RF Referrals: Tamy Thomas MD [Primary Care Provider, Internal Medicine] Interventions: ED Discharge Assessment Last Done: 08/03/25 21:56 Discharge Date/Time: 08/03/25 22:03 Print Language: Panamanian
[2025-08-03 18:49] LABS: IDNOW Serial# 6674DD1D; Strep A Nucleic Acid Negative (Negative)
--- OUTSIDE RECORDS SUMMARY | 2025-08-03 19:05 | XMS_ITS | Encounter Summary ---
Author Organization [employer] Address [address] [place] [address] Care Team Providers Care Online Community Manager Name Role Phone Lea Rangel NP, Erica Primary Care Provider [phone] Encounter Details Date Type Department Care Team (Late st Contact Info) Description 04/02/2025 Lab Requisition [facility] - Main Lab [address] [facility] [place] [address] Marta Marquez, [address] [address] Other skilled nursing (current) drug therapy Social History Tobacco Use [...] DIFFERENTIATION Routine 04/02/2025 7:00 AM EDT Other oil heaterman (current) drug therapy TREPONEMA PALLIDUM ANTIBODY WITH REFLEX TO RPR AND PARTICLE AGGLUTINATION Routine 04/02/2025 7:00 AM EDT Other oil heaterman (current) drug therapy CHLAMYDIA TRACHOMATIS AND NEISSERIA GONORRHOEAE PCR Routine 04/02/2025 7:00 AM EDT Other skilled nursing (current) drug therapy documented in this encounter Results * Chlamydia trachomatis and Neisseria gonorrhoeae molecular study (04/02/2025 7:00 AM EDT) Neisseria gonorrhoeae PCR Negative Negative LAB MOLECULAR DIAGNOSTICS METHOD 04/02/2025 1:04 PM EDT [facility] Chlamydia trachomatis PCR Negative Negative LAB MOLECULAR DIAGNOSTICS METHOD 04/02/2025 1:04 PM EDT [facility] Swab Cervix uteri structure / Unknown Non-blood Collection / Unknown 04/02/2025 7:00 AM EDT 04/02/2025 9:45 AM EDT us Marta Marquez [facility] MICROBIOLOGY - GENERAL ORDERABLES Final Result Performing Organization Address [facility]/ZIP Co de Phone Number [facility] [address] [place] [address], [place] [phone] * Treponema pallidum antibody with reflex to RPR and particle agglutination (04/02/2025 7:00 AM EDT) T. Pallidum Antibodies Negative Negative LAB CHEMISTRY METHOD 04/02/2025 11:00 AM EDT [facility] Blood Venous blood specimen / Unknown Venipuncture / Unknown 04/02/2025 7:00 AM EDT 04/02/2025 9:45 AM EDT us Marta Marquez [facility] BLOOD ORDERABLES Final Result Performing Organization Address [facility]/ZIP Co de Phone Number [facility] [address] [place] [address], [place] [phone] * HIV 1,2 antibody, p24 antigen with reflex to differentiation (04/02/2025 7:00 AM EDT) HIV Combo AB/AG Negative Negative LAB CHEMISTRY METHOD 04/02/2025 11:29 AM EDT [facility] Blood Venous blood specimen / Unknown Venipuncture / Unknown 04/02/2025 7:00 AM EDT 04/02/2025 9:45 AM EDT Narrative [facility] - 04/02/2025 11:29 AM EDT This assay is a 4th generation assay allowing for earlier detection of HIV infection by detecting the presence of the HIV-1 p24 antigen as well as the traditional antibodies to HIV type 1 (including group O) and type 2. Use of a 4th generation assay is the current CDC recommendation for HIV screening. us Marta Marquez [facility] BLOOD ORDERABLES Final Result [facility] [address] [place] [address], documented in this encounter Visit Diagnoses Diagnosis Other skilled nursing (current) drug therapy documented in this encounter Care Teams Online Community Manager Relationship Specialty Start Date End Date Shannon Tate NP [address] [place] [phone] PCP - General Psychiatry 04/01/25 documented as of this encounter
--- OUTSIDE RECORDS SUMMARY | 2025-08-03 19:05 | XMS_ITS | Clinical Summary ---
Author Organization [address] [facility] Address [address] [place] [address] Phone Care Team Providers Care Equipment Operator Wage Hand Name Role Phone Lea Rangel NP, Shannon Primary Care Provider Social History Tobacco Use Types Packs/Day Years [...] DIFFERENTIATION Routine 04/02/2025 7:00 AM EDT Other regional intermodal truck driver (current) drug therapy LIPID PANEL WITH REFLEX TO DIRECT LDL Routine 04/01/2025 7:00 AM EDT Other regional intermodal truck driver (current) drug therapy from Last 3 Months or Most Recently Relevant to Health Maintenance Results * HIV 1,2 antibody, p24 antigen with reflex to differentiation (04/02/2025 7:00 AM EDT) HIV Combo AB/AG Negative Negative LAB CHEMISTRY METHOD 04/02/2025 11:29 AM EDT [facility] Blood Venous blood specimen / Unknown Venipuncture / Unknown 04/02/2025 7:00 AM EDT 04/02/2025 9:45 AM EDT Narrative [facility] - 04/02/2025 11:29 AM [...] recommendation for HIV screening. us Marta Marquez [facility] BLOOD ORDERABLES Final Result [facility] [address] [place] [address], [place] [phone] * Lipid panel with reflex to direct LDL (04/01/2025 7:00 AM EDT) Cholesterol 181 0 - 200 mg/dL LAB CHEMISTRY METHOD 04/01/2025 10:56 AM [facility] Triglycerides 141 0 - 150 mg/dL LAB CHEMISTRY METHOD 04/01/2025 10:56 AM [facility] HDL 53 >=40 mg/dL LAB CHEMISTRY METHOD 04/01/2025 10:56 AM [facility] LDL Calculated 100 0 - 100 mg/dL LAB CHEMISTRY METHOD 04/01/2025 10:56 AM [facility] Comment:Estimated LDL Calcul ated using equation: Total cholesterol - HDL cholesterol - (Triglycerides/5) VLDL Cholesterol Aftab 28.2 mg/dL LAB CHEMISTRY METHOD 04/01/2025 10:56 AM [facility] Non HDL Chol. (LDL+VLDL) 128 <145 mg/dL LAB CHEMISTRY METHOD 04/01/2025 10:56 AM [facility] Chol/HDL Ratio 3.4 0.0 - 4.4 LAB CHEMISTRY METHOD 04/01/2025 10:56 AM [facility] Blood Venous blood specimen / Unknown Venipuncture / Unknown 04/01/2025 7:00 AM EDT 04/01/2025 10:03 AM EDT Shannon Rangel NP LAB BLOOD ORDERABLES Final Re sult [facility] [address] [place] [address], from Last 3 Months or Most Recently Relevant to Health Maintenance Care Teams Equipment Operator Wage Hand Relationship Specialty Start Date End Date Shannon Tate NP [address] [place] [phone] PCP - General Psychiatry 04/01/25
--- OUTSIDE RECORDS SUMMARY | 2025-08-03 19:05 | XMS_ITS | Encounter Summary ---
Author Organization [employer] Address [address] [place] [address] Care Team Providers Care Stair Builder Name Role Phone Lea Rangel NP, Erica Primary Care Provider [phone] Encounter Details Date Type Department Care Team (Late st Contact Info) Description 04/02/2025 Lab Requisition [facility] - Main Lab [address] [facility] [address] [facility] [place] [address] Marta Marquez, [address] [address] Social History Tobacco Use Types [...] on filedocumented in this encounter Care Teams Stair Builder Relationship Specialty Start Date End Date Shannon Tate NP [address] [place] [phone] PCP - General Psychiatry 04/01/25 documented as of this encounter
--- OUTSIDE RECORDS SUMMARY | 2025-08-03 19:06 | XMS_ITS | Encounter Summary ---
Author Organization [employer] Address [address] [place] [address] Care Team Providers Care Centrex Radio Operator Name Role Phone Lea Rangel NP, Erica Primary Care Provider [phone] Encounter Details Date Type Department Care Team (Late st Contact Info) Description 04/01/[address] [facility] - Main Lab [address] [facility] [place] [address] Shannon Tate NP [address] [place] [address] Other emt intermediate (current) drug therapy Social History Tobacco Use [...] LDL Routine 04/01/2025 7:00 AM EDT Other emt intermediate (current) drug therapy HEMOGLOBIN A1C Routine 04/01/2025 7:00 AM EDT Other emt intermediate (current) drug therapy GLUCOSE, RANDOM Routine 04/01/2025 7:00 AM EDT Other emt intermediate (current) drug therapy documented in this encounter Results * Hemoglobin A1c (04/01/2025 7:00 AM EDT) Hemoglobin A1C 6.4 <6.5 % LAB CHEMISTRY METHOD 04/01/2025 11:17 AM EDT [facility] Mean Bld Glu Estim. 137 mg/dL LAB CHEMISTRY METHOD 04/01/2025 11:17 AM EDT [facility] Blood Venous blood specimen / Unknown Venipuncture / Unknown 04/01/2025 7:00 AM EDT 04/01/2025 10:03 AM EDT us Shannon Rangel NP LAB BLOOD ORDERABLES Final Re sult [facility] [address] [place] [address], [place] [phone] * Lipid panel with reflex to direct LDL (04/01/2025 7:00 AM EDT) Cholesterol 181 0 - 200 mg/dL LAB CHEMISTRY METHOD 04/01/2025 10:56 AM [facility] Triglycerides 141 0 - 150 mg/dL LAB CHEMISTRY METHOD 04/01/2025 10:56 AM [facility] HDL 53 >=40 mg/dL LAB CHEMISTRY METHOD 04/01/2025 10:56 AM [facility] LDL Calculated 100 0 - 100 mg/dL LAB CHEMISTRY METHOD 04/01/2025 10:56 AM [facility] Comment:Estimated LDL Calcul ated using equation: Total cholesterol - HDL cholesterol - (Triglycerides/5) VLDL Cholesterol Aftab 28.2 mg/dL LAB CHEMISTRY METHOD 04/01/2025 10:56 AM [facility] Non HDL Chol. (LDL+VLDL) 128 <145 mg/dL LAB CHEMISTRY METHOD 04/01/2025 10:56 AM [facility] Chol/HDL Ratio 3.4 0.0 - 4.4 LAB CHEMISTRY METHOD 04/01/2025 10:56 AM [facility] Blood Venous blood specimen / Unknown Venipuncture / Unknown 04/01/2025 7:00 AM EDT 04/01/2025 10:03 AM EDT Shannon Rangel NP LAB BLOOD ORDERABLES Final Re sult Performing Organization Address [facility] Co de Phone Number [facility] [address] [place] [address], [place] [phone] * (ABNORMAL) Glucose, random (04/01/2025 7:00 AM EDT) Glucose 106(H) 70 - 100 mg/dL LAB CHEMISTRY METHOD 04/01/2025 10:56 AM EDT [facility] Blood Venous blood specimen / Unknown Venipuncture / Unknown 04/01/2025 7:00 AM EDT 04/01/2025 10:03 AM EDT Shannon Rangel NP LAB BLOOD ORDERABLES Final Re sult Performing Organization Address [facility] Co de Phone Number [facility] [address] [place] [address], [place] [phone] documented in this encounter Visit Diagnoses Diagnosis Other [facility] (current) drug therapy documented in this encounter Care Teams Centrex Radio Operator Relationship Specialty Start Date End Date Shannon Tate NP [address] [place] [phone] PCP - General Psychiatry 04/01/25 documented as of this encounter
--- OUTSIDE RECORDS SUMMARY | 2025-08-03 19:06 | XMS_ITS | Encounter Summary ---
Author Organization [facility] Address [address] [place] [address] Care Team Providers Care Visual Basic Programmer Name Role Phone Lea Rangel NP, Erica Primary Care Provider [phone] Encounter Details Date Type Department Care Team (Late st Contact Info) Description 04/01/2025 Lab Requisition [facility] - Main Lab [address] [facility] [place] [address] Shannon Tate NP [address] [place] [address] Social History Tobacco Use Types [...] on filedocumented in this encounter Care Teams Visual Basic Programmer Relationship Specialty Start Date End Date Shannon Tate NP [address] [place] [address] PCP - General Psychiatry 04/01/25 documented as of this encounter
[2025-08-03 19:18] LABS: Resp Syncy Virus RNA Qual PCR NEGATIVE (Negative); SARS COV2 PCR INHOUSE NEGATIVE (Negative)
[2025-08-03 21:56] VITALS: BP 134/70; PULSE 96; RESP 18; TEMP 36.2; O2SAT 97
== END 2025-08-03 22:03 | disposition home or self-care (01) ==
PROVIDERS: Physician Assistant; Emergency Provider Emergency Medicine; PCP Student in an Organized Health Care Education/Training Program
DX: J06.9 Acute upper respiratory infection, unspecified (principal); R05.9 Cough, unspecified; Z03.818 Encounter for observation for suspected exposure to other biological agents ruled out
CPT/HCPCS: 71046; 87637; 87651; 99282; 99283

== ENCOUNTER → 2025-08-03 18:26 | Outpatient (BNV) | payer OTHER, SELFPAY | PROVIDERS: PCP Student in an Organized Health Care Education/Training Program; Visit Provider Radiology Diagnostic Radiology | DX: J18.9 Pneumonia, unspecified organism (principal) | CPT/HCPCS: 71046 ==

== ENCOUNTER 2025-08-04 02:07 | Emergency (ER) | payer OTHER, SELFPAY ==
[2025-08-04 02:09] VITALS: BP 130/76; PULSE 97; RESP 20; TEMP 36.6; O2SAT 95; BMI 36.6
--- OUTSIDE RECORDS SUMMARY | 2025-08-04 04:43 | XMS_ITS | Encounter Summary ---
Author Organization [employer] Address [address] [place] [address] Care Team Providers Care Vamp Cut Out Worker Name Role Phone Lea Rangel NP, Erica Primary Care Provider [phone] Encounter Details Date Type Department Care Team (Late st Contact Info) Description 04/01/2025 Lab Requisition [facility] - Main Lab [address] [facility] [place] [address] Shannon Tate NP [address] [place] [address] Other vermin exterminator (current) drug therapy Social History Tobacco Use [...] LDL Routine 04/01/2025 7:00 AM EDT Other vermin exterminator (current) drug therapy HEMOGLOBIN A1C Routine 04/01/2025 7:00 AM EDT Other vermin exterminator (current) drug therapy GLUCOSE, RANDOM Routine 04/01/2025 7:00 AM EDT Other vermin exterminator (current) drug therapy documented in this encounter Results * Hemoglobin A1c (04/01/2025 7:00 AM EDT) Hemoglobin A1C 6.4 <6.5 % LAB CHEMISTRY METHOD 04/01/2025 11:17 AM EDT [facility] Mean Bld Glu Estim. 137 mg/dL LAB CHEMISTRY METHOD 04/01/2025 11:17 AM EDT [facility] Blood Venous blood specimen / Unknown Venipuncture / Unknown 04/01/2025 7:00 AM EDT 04/01/2025 10:03 AM EDT us Shannon Rangel NP LAB BLOOD ORDERABLES Final Re sult [facility] [address] [place] [address], [place] [phone] * Lipid panel with reflex to direct [...] ORDERABLES Final Re sult Performing Organization Address [facility] Co de Phone Number [facility] [address] [place] [address], [place] [phone] * (ABNORMAL) Glucose, random (04/01/2025 7:00 AM EDT) Glucose 106(H) 70 - 100 mg/dL LAB CHEMISTRY METHOD 04/01/2025 10:56 AM EDT [facility] Blood Venous blood specimen / Unknown Venipuncture / Unknown 04/01/2025 7:00 AM EDT 04/01/2025 10:03 AM EDT Shannon Rangel NP LAB BLOOD ORDERABLES Final Re sult Performing Organization Address [facility] Co de Phone Number [facility] [address] [place] [address], [place] [phone] documented in this encounter Visit Diagnoses Diagnosis Other penitentiary (current) drug therapy documented in this encounter Care Teams Vamp Cut Out Worker Relationship Specialty Start Date End Date Shannon Tate NP [address] [place] [phone] PCP - General Psychiatry 04/01/25 documented as of this encounter
--- OUTSIDE RECORDS SUMMARY | 2025-08-04 04:43 | XMS_ITS | Encounter Summary ---
Author Organization [employer] Address [address] [place] [address] Care Team Providers Care Automobile Mechanic Apprentice Name Role Phone Lea Rangel NP, Erica Primary Care Provider [phone] Encounter Details Date Type Department Care Team (Late st Contact Info) Description 04/02/2025 Lab Requisition [facility] - Main Lab [address] [address] [facility] [place] [address] Marta Marquez, [address] [address] Social History Tobacco Use Types [...] on filedocumented in this encounter Care Teams Automobile Mechanic Apprentice Relationship Specialty Start Date End Date Shannon Tate NP [address] [place] [phone] PCP - General Psychiatry 04/01/25 documented as of this encounter
--- OUTSIDE RECORDS SUMMARY | 2025-08-04 04:43 | XMS_ITS | Encounter Summary ---
Author Organization [employer] Address [address] [place] [address] Care Team Providers Care Cad Detailer Name Role Phone Lea Rangel NP, Erica Primary Care Provider [phone] Encounter Details Date Type Department Care Team (Late st Contact Info) Description 04/02/2025 Lab Requisition [facility] - Main Lab [address] [facility] [place] [address] Marta Marquez, [address] [address] Other intermediate (current) drug therapy Social History Tobacco [...] DIFFERENTIATION Routine 04/02/2025 7:00 AM EDT Other extermination supervisor (current) drug therapy TREPONEMA PALLIDUM ANTIBODY WITH REFLEX TO RPR AND PARTICLE AGGLUTINATION Routine 04/02/2025 7:00 AM EDT Other extermination supervisor (current) drug therapy CHLAMYDIA TRACHOMATIS AND NEISSERIA GONORRHOEAE PCR Routine 04/02/2025 7:00 AM EDT Other intermediate (current) drug therapy documented in this encounter Results * Chlamydia trachomatis and Neisseria gonorrhoeae molecular study (04/02/2025 7:00 AM EDT) Neisseria gonorrhoeae PCR Negative Negative LAB MOLECULAR DIAGNOSTICS METHOD 04/02/2025 1:04 PM EDT [facility] Chlamydia trachomatis PCR Negative Negative LAB MOLECULAR DIAGNOSTICS METHOD 04/02/2025 1:04 PM EDT [facility] Swab Cervix uteri structure / Unknown Non-blood Collection / Unknown 04/02/2025 7:00 AM EDT 04/02/2025 9:45 AM EDT us Marta Marquez [facility] MICROBIOLOGY - GENERAL ORDERABLES Final Result Performing Organization Address [facility]/ZIP Co de Phone Number [facility] [address] [place] [address], [place] [phone] * Treponema pallidum antibody with reflex to RPR and particle agglutination (04/02/2025 7:00 AM EDT) T. Pallidum Antibodies Negative Negative LAB CHEMISTRY METHOD 04/02/2025 11:00 AM EDT [facility] Blood Venous blood specimen / Unknown Venipuncture / Unknown 04/02/2025 7:00 AM EDT 04/02/2025 9:45 AM EDT us Marta Marquez [facility] BLOOD ORDERABLES Final Result Performing Organization Address [facility]/ZIP Co de Phone Number [facility] [address] [place] [address], [place] [phone] * HIV 1,2 antibody, p24 antigen with reflex to differentiation (04/02/2025 7:00 AM EDT) HIV Combo AB/AG Negative Negative LAB CHEMISTRY METHOD 04/02/2025 11:29 AM EDT [facility] Blood Venous blood specimen / Unknown Venipuncture / Unknown 04/02/2025 7:00 AM EDT 04/02/2025 9:45 AM EDT Narrative [facility] - 04/02/2025 11:29 AM [...] recommendation for HIV screening. us Marta Marquez CENTRAL STATION OPERATOR LAB BLOOD ORDERABLES Final Result [facility] [address] [place] [address], documented in this encounter Visit Diagnoses Diagnosis Other intermediate (current) drug therapy documented in this encounter Care Teams Cad Detailer Relationship Specialty Start Date End Date Shannon Tate NP [address] [place] [phone] PCP - General Psychiatry 04/01/25 documented as of this encounter
--- OUTSIDE RECORDS SUMMARY | 2025-08-04 04:43 | XMS_ITS | Encounter Summary ---
Author Organization [employer] Address [address] [place] [address] Care Team Providers Care Radio Program Director Name Role Phone Lea Rangel NP, Erica Primary Care Provider [phone] Encounter Details Date Type Department Care Team (Late st Contact Info) Description 04/01/2025 Lab Requisition [facility] - Main Lab [address] [place] [address] Shannon Tate NP [address] [place] [address] Social History Tobacco Use Types [...] on filedocumented in this encounter Care Teams Radio Program Director Relationship Specialty Start Date End Date Shannon Tate NP [address] [place] [address] PCP - General Psychiatry 04/01/25 documented as of this encounter
--- OUTSIDE RECORDS SUMMARY | 2025-08-04 04:43 | XMS_ITS | Clinical Summary ---
Author Organization [address] [facility] Address [address] [place] [address] Phone Care Team Providers Care Manager Labor Delivery Name Role Phone Lea Rangel NP, Shannon Primary Care Provider [phone] Social History Tobacco Use Types Packs/Day Years [...] DIFFERENTIATION Routine 04/02/2025 7:00 AM EDT Other termite control representative (current) drug therapy LIPID PANEL WITH REFLEX TO DIRECT LDL Routine 04/01/2025 7:00 AM EDT Other termite control representative (current) drug therapy from Last 3 Months or Most Recently Relevant to Health Maintenance Results * HIV 1,2 antibody, p24 antigen with reflex to differentiation (04/02/2025 7:00 AM EDT) HIV Combo AB/AG Negative Negative LAB CHEMISTRY METHOD 04/02/2025 11:29 AM EDT [facility] Blood Venous blood specimen / Unknown Venipuncture / Unknown 04/02/2025 7:00 AM EDT 04/02/2025 9:45 AM EDT Narrative [facility] - 04/02/2025 11:29 AM EDT [...] MEDICAL CENTER LAB BLOOD ORDERABLES Final Result [facility] [address] [place] [address], [place] [phone] * Lipid panel with reflex to direct LDL (04/01/2025 7:00 AM EDT) Cholesterol 181 0 - 200 mg/dL LAB CHEMISTRY METHOD 04/01/2025 10:56 AM [facility] Triglycerides 141 0 - 150 mg/dL LAB CHEMISTRY METHOD 04/01/2025 10:56 AM [facility] HDL 53 >=40 mg/dL LAB CHEMISTRY METHOD 04/01/2025 10:56 AM [facility] LDL Calculated 100 0 - 100 mg/dL LAB CHEMISTRY METHOD 04/01/2025 10:56 AM [facility] Comment:Estimated LDL Calcul ated using equation: Total cholesterol - HDL cholesterol - (Triglycerides/5) VLDL Cholesterol Aftab 28.2 mg/dL LAB CHEMISTRY METHOD 04/01/2025 10:56 AM [facility] Non HDL Chol. (LDL+VLDL) 128 <145 mg/dL LAB CHEMISTRY METHOD 04/01/2025 10:56 AM [facility] Chol/HDL Ratio 3.4 0.0 - 4.4 LAB CHEMISTRY METHOD 04/01/2025 10:56 AM [facility] Blood Venous blood specimen / Unknown Venipuncture / Unknown 04/01/2025 7:00 AM EDT 04/01/2025 10:03 AM EDT Shannon Rangel NP LAB BLOOD ORDERABLES Final Re sult [facility] [address] [place] [address], from Last 3 Months or Most Recently Relevant to Health Maintenance Care Teams Manager Labor Delivery Relationship Specialty Start Date End Date Shannon Tate NP [address] [place] [phone] PCP - General Psychiatry 04/01/25
== END 2025-08-04 06:46 | disposition left against medical advice (07) ==
PROVIDERS: Emergency Provider Emergency Medicine; PCP Student in an Organized Health Care Education/Training Program
DX: R06.02 Shortness of breath (principal); Z53.21 Procedure and treatment not carried out due to patient leaving prior to being seen by health care provider
CPT/HCPCS: 99281